=== PATIENT | female | born 1990 | race Caucasian/White ===

== ENCOUNTER → 2017-02-03 | Outpatient (CLI) | payer OTHER ==
[2017-02-03 14:47] LABS: URINE APPEARANCE CLEAR (CLEAR); URINE BILIRUBIN NEG (NEG); URINE COLOR YELLOW; URINE NITRITE NEG (NEG); URINE SPECIFIC GRAVITY 1.021 (1.000-1.030); UROBILINOGEN NEG (NEG)
[2017-02-03 15:11] LABS: MANUAL MICROSCOPIC REQUIRED? NO; REVIEW REQ? NO
== END | disposition home or self-care (01) ==
LOC: C.LABSPEC 13:47
PROVIDERS: ATTEND Obstetrics & Gynecology
DX: Z34.01 Encounter for supervision of normal first pregnancy, first trimester (principal)

== ENCOUNTER → 2017-02-10 | Outpatient (CLI) | payer OTHER ==
[2017-02-10 17:14] LABS: BASO % 0.3 %; BASO ABS # 0.03 K/uL (0-0.2); COMPLETE YES; EOS % 0.7 %; HEMATOCRIT 40.3 % (37-47); IG% 0.4 %; LYMPH % 18.4 %; LYMPH ABS # 2.06 K/uL (1.2-3.4); MEAN CELL VOLUME 91.8 fL (80-100); MEAN CORPUSCULAR HEMOGLOBIN 31.7 pg (25-34); MEAN CORPUSCULAR HGB CONC 34.5 g/dl (32-36); MEAN PLATELET VOLUME 9.9 fL (7.4-10.4); MONO % 6.2 %; PLATELET COUNT 252 K/uL (130-400); RED BLOOD COUNT 4.39 M/uL (4.2-5.4); WHITE BLOOD COUNT 11.19 K/uL (4.8-10.8)
[2017-02-14 07:35] LABS: CHLAMYDIA TRACH RNA*** NOT DETECTED (NOT DETECTED); GC (NEIS GONORRHOEAE)RNA** NOT DETECTED (NOT DETECTED)
== END | disposition home or self-care (01) ==
LOC: C.LAB1850 16:17
PROVIDERS: ATTEND Obstetrics & Gynecology
DX: Z34.01 Encounter for supervision of normal first pregnancy, first trimester (principal)

== ENCOUNTER → 2017-03-03 | Outpatient (CLI) | payer OTHER | END | disposition home or self-care (01) | LOC: C.LABSPEC 17:48 | PROVIDERS: ATTEND Obstetrics & Gynecology | DX: O23.40 Unspecified infection of urinary tract in pregnancy, unspecified trimester (principal); Z3A.00 Weeks of gestation of pregnancy not specified ==

== ENCOUNTER → 2017-03-31 | Outpatient (CLI) | payer OTHER ==
[2017-03-31 17:31] LABS: GTGD 50 Grams
== END | disposition home or self-care (01) ==
LOC: C.LAB1850 14:10
PROVIDERS: ATTEND Obstetrics & Gynecology
DX: Z34.01 Encounter for supervision of normal first pregnancy, first trimester (principal)

== ENCOUNTER → 2017-06-23 | Outpatient (CLI) | payer OTHER ==
[2017-06-23 11:34] LABS: GTGD 50 Grams
[2017-06-23 15:18] LABS: URINE APPEARANCE CLOUDY (CLEAR); URINE BILIRUBIN NEG (NEG); URINE COLOR YELLOW; URINE EPITHELIAL CELL AUTO >30 /lpf (0-5); URINE NITRITE NEG (NEG); URINE SPECIFIC GRAVITY 1.023 (1.000-1.030); UROBILINOGEN NEG (NEG)
[2017-06-23 15:19] LABS: MANUAL MICROSCOPIC REQUIRED? NO; REVIEW REQ? NO
== END | disposition home or self-care (01) ==
LOC: C.LAB1850 09:11
PROVIDERS: ATTEND Obstetrics & Gynecology
DX: Z34.03 Encounter for supervision of normal first pregnancy, third trimester (principal)

== ENCOUNTER 2017-08-04 01:53 | Observation (INO) | payer OTHER ==
[~2017-08-04] VITALS: Ht 157.5 cm; Wt 88.5 kg
[2017-08-04] MEDS ORDERED: SODIUM CHLORIDE 0.9% 1000ML 1,000 ML IV STA ×2 (02:13→03:27)
--- NOTE | 2017-08-04 02:20 | EMERGENCY ROOM VISIT NOTE ---
History Report prepared by Vicente: Norma Rodriguez Under the Supervision of: Dr. Bear Dominguez M.D. 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 She notes that she came home from work and was not feeling well. She notes that she was nauseous prior to going to bed and then woke up two hours later with increased nausea, increased heart rate, vomiting, shortness of breath, and mild low abdominal pain. She currently rates her pain a 4/10 in severity. The patient is 34 weeks . She notified her OB and was advised to come to the ED for evaluation. She states that the fetus is very active. She notes swelling in hands and feet that began three days ago. She denies any history of blood clots. She denies any family history of blood clots. The patient has a recent history of an upper respiratory infection. She is currently taking Amoxicillin for sinus infection. She denies any vaginal bleeding, vaginal discharge, urinary symptoms, chest pain , headache, or recent travels. 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 She notes increased heart rate. She denies any vaginal bleeding, vaginal discharge, or recent travels. Review of Systems See HPI for pertinent positives & negatives. A total of 10 systems reviewed and were otherwise negative. Past Medical & Surgical Medical Problems: (1) Hypothyroidism Family History FHx: cancer Social History Smoking Status: Never Smoker Smokeless Tobacco Use: No Alcohol Use: none Drug Use: none Marital Status: Housing Status: lives with significant other Occupation Status: employed Current/Historical Medications Scheduled Amoxicillin (Amoxil), 875 MG PO BID Ascorbic Acid (Ascorbic Acid), 250 MG PO DAILY Cholecalciferol (Vitamin D3), 2,000 UNITS PO DAILY Ferrous Sulfate (Iron), 325 MG PO DAILY Fluoxetine (Prozac), 10 MG PO DAILY Multivit/Min/Iron/Fol Ac/Pren ( Vitamin), 1 TAB PO DAILY Pantoprazole (Protonix), 40 MG PO DAILY Ranitidine (Zantac), 150 MG PO BID Allergies Coded Allergies: No Known Allergies (Unverified , 08/04/17) Physical Exam Vital Signs Date Time Temp Pulse Resp B/P (MAP) Pulse Ox O2 Delivery O2 Flow Rate FiO2 08/04/17 05:50 112 20 103/43 97 08/04/17 04:38 109 20 103/52 97 Room Air 08/04/17 03:01 111 20 100/53 97 Room Air 08/04/17 02:25 134 20 99/63 97 Room Air 08/04/17 02:00 97 Room Air 08/04/17 01:56 36.6 134 20 94/61 97 Room Air Physical Exam GENERAL: Patient is well appearing and in minimal acute distress. HEENT: No acute trauma, normocephalic atraumatic, mucous membranes moist, no nasal congestion, no scleral icterus. NECK: No stridor, no adenopathy, no meningismus, trachea is midline. LUNGS: No dyspnea. Clear to auscultation and equal bilaterally. No wheeze, no rhonchi. HEART: Tachycardic in the 100s. No murmurs, rubs, gallops appreciated. ABDOMEN: Soft, bowel sounds positive, large fundus consistent with dates appreciated, no peritonitis. Vague tenderness over suprapubic region. BACK: No midline tenderness, no CVA tenderness EXTREMITIES: Normal motion all extremities, no cyanosis, no edema. NEUROLOGIC: Alert and oriented, no acute motor or sensory deficits, no focal weakness, cranial nerves grossly intact. SKIN: No rash, no jaundice, no diaphoresis. Medical Decision & Procedures Laboratory Results 08/04/17 02:05 Red Blood Count 3.97, Mean Corpuscular Volume 96.7, Mean Corpuscular Hemoglobin 32.5, Mean Corpuscular Hemoglobin Concent 33.6, Mean Platelet Volume 10.5, Neutrophils (%) (Auto) 83.0, Lymphocytes (%) (Auto) 7.3, Monocytes (%) (Auto) 7.2, Eosinophils (%) (Auto) 0.1, Basophils (%) (Auto) 0.1, Neutrophils # (Auto) 11.70, Lymphocytes # (Auto) 1.03, Monocytes # (Auto) 1.02, Eosinophils # (Auto) 0.02, Basophils # (Auto) 0.02 08/04/17 02:05 Test 08/04/17 02:05 08/04/17 02:20 08/04/17 03:35 White Blood Count 14.11 K/uL (4.8-10.8) Red Blood Count 3.97 M/uL (4.2-5.4) Hemoglobin 12.9 g/dL (12.0-16.0) Hematocrit 38.4 % (37-47) Mean Corpuscular Volume 96.7 fL (80-100) Mean Corpuscular Hemoglobin 32.5 pg (25-34) Mean Corpuscular Hemoglobin Concent 33.6 g/dl (32-36) Platelet Count 183 K/uL (130-400) Mean Platelet Volume 10.5 fL (7.4-10.4) Neutrophils (%) (Auto) 83.0 % Lymphocytes (%) (Auto) 7.3 % Monocytes (%) (Auto) 7.2 % Eosinophils (%) (Auto) 0.1 % Basophils (%) (Auto) 0.1 % Neutrophils # (Auto) 11.70 K/uL (1.4-6.5) Lymphocytes # (Auto) 1.03 K/uL (1.2-3.4) Monocytes # (Auto) 1.02 K/uL (0.11-0.59) Eosinophils # (Auto) 0.02 K/uL (0-0.5) Basophils # (Auto) 0.02 K/uL (0-0.2) RDW Standard Deviation 52.4 fL (36.4-46.3) RDW Coefficient of Variation 14.9 % (11.5-14.5) Immature Granulocyte % (Auto) 2.3 % Immature Granulocyte # (Auto) 0.32 K/uL (0.00-0.02) Anion Gap 10.0 mmol/L (3-11) Est Creatinine Clear Calc Drug Dose 211.6 ml/min Estimated GFR () > 150.0 Estimated GFR (Non- 142.5 BUN/Creatinine Ratio 11.1 (10-20) Calcium Level 8.6 mg/dl (8.5-10.1) Total Bilirubin 0.8 mg/dl (0.2-1) Direct Bilirubin 0.2 mg/dl (0-0.2) Aspartate Amino Transf (AST/SGOT) 16 U/L (15-37) Alanine Aminotransferase (ALT/SGPT) 16 U/L (12-78) Alkaline Phosphatase 114 U/L (45-117) Total Protein 6.5 gm/dl (6.4-8.2) Albumin 2.9 gm/dl (3.4-5.0) Thyroid Stimulating Hormone (TSH) 1.180 uIu/ml (0.300-4.500) Urine Color ORANGE Urine Appearance CLOUDY (CLEAR) Urine pH 6.0 (4.5-7.5) Urine Specific [place] 1.026 (1.000-1.030) Urine Protein 1+ (NEG) Urine Glucose (UA) NEG (NEG) Urine Ketones 4+ (NEG) Urine Occult Blood NEG (NEG) Urine Nitrite NEG (NEG) Urine Bilirubin NEG (NEG) Urine Urobilinogen NEG (NEG) Urine Leukocyte Esterase SMALL (NEG) Urine WBC (Auto) 10-30 /hpf (0-5) Urine RBC (Auto) 0-4 /hpf (0-4) Urine Hyaline Casts (Auto) 0 /lpf (0-5) Urine Epithelial Cells (Auto) >30 /lpf (0-5) Urine Bacteria (Auto) NEG (NEG) Urine Crystals CALCIUM OXALATE (NONE Urine Pathogenic Casts /lpf (0) Troponin I 0.039 ng/ml (0-0.045) Laboratory results as reviewed by me. Medications Administered Medications (Trade) Dose Ordered Sig/Rakel Route Start Time Stop Time Status Last Admin Dose Admin Sodium Chloride 1,000 ml @ 999 mls/hr Q1H1M STAT IV 08/04/17 02:13 08/04/17 03:13 DC 08/04/17 02:13 999 MLS/HR Ondansetron HCl (Zofran Inj) 4 mg NOW STAT IV 08/04/17 02:21 08/04/17 02:22 DC 08/04/17 02:34 4 MG Sodium Chloride 1,000 ml @ 999 mls/hr Q1H1M STAT IV 08/04/17 03:27 08/04/17 04:27 DC 08/04/17 03:27 999 MLS/HR Potassium Chloride (Klor-Con M10) 40 meq STK-MED ONCE .ROUTE 08/04/17 05:47 08/04/17 05:48 DC 08/04/17 05:49 40 MEQ ECG Indication: SOB/dyspnea Rate (beats per minute): 119 Rhythm: sinus tachycardia Findings: no acute ischemic change, no ectopy Change: Repeat ECG: Sinus Tachycardia 105 Findings: No acute ischemic changes. No ectopy. Similar to previous. ED Course 0206: The patient was evaluated in room A11B. A complete history and physical exam was performed. 0255: I reassessed the patient at this time. Her heart rate is down to 100. She no longer has abdominal pain or shortness of breath. She is resting comfortably. 0325: I reassessed the patient at this time. Her heart rate is in the 90s. She notes feeling much better. She is agreeable to repeat laboratory check. She and her are comfortable with treatment plan. 0329: I spoke with KELSI Villagomez. We discussed the patients case. She agrees with repeating the troponin. She advises to send to L&D if non- significant. 0405: I reassessed the patient at this time. I performed a US with findings: Positive IUP. Positive heart tones. Positive movement. 0425: I spoke with KELSI Villagomez. We discussed the patients case. She recommends consulting with the hospitalist. 0435: I reassessed the patient at this time. I discussed the results and treatment plan with the patient. I answered all pertaining questions that she had. She expressed understanding and verbalized agreement. The patient will be further evaluated. 0442: I spoke with Dr. Guzman, hospitalist. We discussed the patients case. The patient will be evaluated by the [facility] for further management. 0452: I spoke with Dr. Verduzco, field services manager. We discussed the patients case. He is aware of patient and agrees with plan for echocardiogram. 0500: I reassessed the patient at this time. I updated the patient. Medical Decision 26 yr old 34wk female arrives with tachycardia and lightheaded with episodes of shortness of breath and abdominal cramping. Exam with labile HR from 120s-140s, OK BP and normal O2 sats. She is not shob on arrival nor at any time during stay. With tachy and reported shob/cp/hand swelling in setting of recent URI concern possible myocarditis/pericarditis thus went ahead with EKG and trop. Trop wnl but not negative which is a bit unusual for healthy 26 yr old, but given dehydration felt repeat reasonable. At just 90 min trop has essentially doubled, but again still wnl. At this point she is now feeling completely well without complaints. HR is still a bit tachy in 110s at times but with this is nor unusual. WBC 14 could be URI plus dehydration, and she certainly does not appear septic at this time. I feel that Trop is likely incidental findings, but I can not reasonable state this and given her need for monitoring I did not feel that further waiting in ED pending more testing reasonable without getting more services involved. After multiple discusses plan will be admit to medicine, consult with OB (already at bedside), as well as consult with Cardiology (Dr Verduzco aware by me). Patient aware of plan and approach. She is also aware the fact PE could theoretically case similar symptoms, however in setting of no SOB, no Hypoxia, and symptoms resolved with fluids with clear evidence of dehydration (Ketones 4+), I feel doing CT PE not indicated at this time, nor do benefits outweigh risks. Medication Reconcilliation Current Medication List: was personally reviewed by me Blood Pressure Screening Patient's blood pressure: Normal blood pressure Consults Time Called: [phone] Consulting Physician: KELSI Villagomez Returned Call: [phone] I spoke with KELSI Villagomez. We discussed the patients case. She agrees with repeating the troponin. She advises to send to L&D if non-significant. 0425: I spoke with KELSI Villagomez. We discussed the patients case. She recommends consulting with the hospitalist. Additional Consults: Time Called: [phone] Consulted Physician: Dr. Guzman, hospitalist Returned Call: [phone] Additional Comments: I spoke with Dr. Guzman hospitalist. We discussed the patients case. The patient will be evaluated by the [facility] for further management. Time Called: [phone] Consulted Physician: Dr. Verduzco, field services manager Returned Call: [phone] Additional Comments: I spoke with Dr. Verduzco, field services manager. We discussed the patients case. The patient will be further evaluated. Impression Primary Impression: Tachycardia Additional Impressions: Dehydration Scribe Attestation The scribe's documentation has been prepared under my direction and personally reviewed by me in its entirety. I confirm that the note above accurately reflects all work, treatment, procedures, and medical decision making performed by me. Departure Information Dispostion Being Evaluated By Hospitalist Referrals Tesha Santiago PA-C (PCP) Patient Instructions My [facility] Problem Qualifiers
[2017-08-04] MEDS ORDERED: ONDANSETRON INJ 2 MG/ML 2 ML VIAL IV STA (02:21)
[2017-08-04 02:31] LABS: BASO % 0.1 %; BASO ABS # 0.02 K/uL (0-0.2); EOS % 0.1 %; EOS ABS # 0.02 K/uL (0-0.5); HEMATOCRIT 38.4 % (37-47); HEMOGLOBIN 12.9 g/dL (12.0-16.0); IG# 0.32 K/uL (0.00-0.02); LYMPH % 7.3 %; LYMPH ABS # 1.03 K/uL (1.2-3.4); MEAN CELL VOLUME 96.7 fL (80-100); MEAN CORPUSCULAR HEMOGLOBIN 32.5 pg (25-34); MEAN CORPUSCULAR HGB CONC 33.6 g/dl (32-36); MEAN PLATELET VOLUME 10.5 fL (7.4-10.4); MONO % 7.2 %; MONO ABS # 1.02 K/uL (0.11-0.59); PLATELET COUNT 183 K/uL (130-400); RED CELL DISTRIBUTION WIDTH CV 14.9 % (11.5-14.5); RED CELL DISTRIBUTION WIDTH SD 52.4 fL (36.4-46.3); WHITE BLOOD COUNT 14.11 K/uL (4.8-10.8)
[2017-08-04 02:38] LABS: ALBUMIN 2.9 gm/dl (3.4-5.0); ALT/SGPT 16 U/L (12-78); AST/SGOT 16 U/L (15-37); BLOOD UREA NITROGEN 5 mg/dl (7-18); CALCIUM 8.6 mg/dl (8.5-10.1); CARBON DIOXIDE 20 mmol/L (21-32); CREATININE 0.42 mg/dl (0.60-1.20); GLUCOSE 100 mg/dl (70-99); POTASSIUM 3.6 mmol/L (3.5-5.1); SODIUM 138 mmol/L (136-145)
[2017-08-04 02:43] LABS: ALKALINE PHOSPHATASE 114 U/L (45-117); TOTAL PROTEIN 6.5 gm/dl (6.4-8.2)
[2017-08-04] MEDS ORDERED: CHOL2000 PO (02:47)
[2017-08-04] MEDS ORDERED: ASCO250T5 PO (02:49)
[2017-08-04] MEDS ORDERED: FERR1TAB23 PO (02:49)
[2017-08-04] MEDS ORDERED: PRENTAB26 PO (02:50)
[2017-08-04] MEDS ORDERED: FLUO10CA48 PO (02:51)
[2017-08-04] MEDS ORDERED: PANT40TA PO (02:52)
[2017-08-04] MEDS ORDERED: ZNTT/150 PO (02:53)
[2017-08-04] MEDS ORDERED: AMOX875T3 PO (02:54)
[2017-08-04] MEDS ORDERED: POTASSIUM CHLORIDE 20 MEQ TABCR PO STA (05:39)
[2017-08-04] MEDS ORDERED: POTASSIUM CHLORIDE 10 MEQ TABCR ONE (05:47)
[2017-08-04] MEDS ORDERED: IV FLUIDS COMPLETED PRN (06:00)
--- NOTE | 2017-08-04 06:02 | HISTORY & PHYSICAL EXAMINATION ---
DATE OF ADMISSION: 08/04/2017 REASON FOR CONSULT: at 34 weeks with elevated troponin. 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 I recommended that she be evaluated in the Emergency Department. She noted that the baby was extremely active and that she had some lower abdominal cramping, but no bleeding or leaking fluid. The patient presented to the Emergency Department and was fully evaluated by the ED physician. Her pulse on admission was in the 140s. Her blood pressure on admission was 94/61. She had laboratory work done which showed a white blood cell count of 14.11, hematocrit of 38.4, hemoglobin of 12.9, platelet count of 183. Chemistry within normal limits. BUN 5, creatinine 0.42. AST and ALT were normal. She had a troponin drawn which was 0.023 and this was repeated about an hour and a half later and had essentially doubled. Her TSH was 1.18. During the course of evaluation in the Emergency Department, she was aggressively hydrated as her urine showed +4 ketones. With hydration, the patient felt significantly better. Her tachycardia did improve; however, she does remain slightly tachycardic with a pulse of 109, blood pressure 103/52. She notes her abdominal cramping has completely resolved. She notes no vaginal bleeding or discharge, continues to note good movement. The Emergency Department physician was concerned about the bumped troponin, even though within normal limits and would like further troponins done and a consult by cardiology. Our hospitalist friends have finally agreed to admit her onto to a telemetry bed where she will be followed. The patient is overall healthy. 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 She denies history of abnormal Pap smears or sexually transmitted illnesses. thus far has been uncomplicated. She has hypothyroidism which has been followed throughout the and she has anxiety for which she is on fluoxetine. MEDICATIONS: Cetirizine, Levoxyl, levothyroxine, vitamins, iron, fluoxetine, vitamin D, vitamin C, pantoprazole and Zantac. PAST MEDICAL HISTORY: The patient has a history of depression and anxiety for which she takes fluoxetine. She has a history of hypothyroidism, history of a breast lump which was revealed to be benign cyst and history of chickenpox. PAST SURGICAL HISTORY: Includes only wisdom teeth removal. SOCIAL HISTORY: The patient denies tobacco, alcohol or drug use. PHYSICAL EXAMINATION: GENERAL: This is a well-developed, well-nourished white female lying comfortably in the bed. VITAL SIGNS: Pulse 109, respiration is 20. She is satting 97% on room air, blood pressure 103/52. NECK: Supple without thyromegaly or lymphadenopathy. ABDOMEN: Gravid, soft, nontender, nondistended. EXTREMITIES: Show some trace edema but are otherwise benign. TOCO--no contractions EFM--reactive nst with category one tracing. ASSESSMENT: Esther is a 1, para 0 at approximately 34 weeks who presented to the Emergency Department with tachycardia, shortness of breath, nausea and dizziness. Although the ED doctor suspects that this is probably a viral illness, because of her persistent tachycardia and the elevated troponins, she will admitted by medicine service for observation. Dr. Verduzco has been contacted for evaluation of her heart and she will likely undergo an echocardiogram later in the day today, which I fully support. From a standpoint, I do not believe that she is in labor. The cramping that she had was likely secondary to dehydration and has resolved with aggressive fluid hydration. We can continue that fluid hydration if she has difficulty taking po. She can have a regular OB diet per primary service. We will do a nonstress test on the patient every shift. We will continue to follow with you, but please call us if the patient starts to note bleeding, leaking of fluid, contractions or decreased movement. We appreciate the other consultants on this case. From an ob standpoint, she can be discharged when deemed appropriate by the primary service and cardiology. TO
[2017-08-04 06:30] VITALS: BP 105/58; PULSE 114; TEMP 36.5; O2SAT 98; Ht 157.5 cm; Wt 88.5 kg
[2017-08-04] MEDS ORDERED: SODIUM CHLORIDE 0.9% 1000ML 1,000 ML IV SCH (07:00)
--- NOTE | 2017-08-04 07:05 | DIAGNOSTIC IMAGING REPORT ---
BILATERAL LOWER EXTREMITY VENOUS DOPPLER HISTORY: Bilateral leg swelling. COMPARISON STUDY: None. FINDINGS: There is normal compressibility, flow, and augmentation within the bilateral lower extremity deep venous systems. IMPRESSION: No DVT within the right or left lower extremity. Electronically signed by: Cristian Plummer M.D. 08/04/2017 7:04 AM Dictated Date/Time: 08/04/2017 7:04 AM
--- NOTE | 2017-08-04 07:53 | History and Physical ---
History & Physical Date & Time of Service: Aug 04, 2017 at 07:05 Chief Complaint: , Tachycardia Primary Care Physician: Tesha Santiago PA-C History of Present Illness Source: patient This is 26 year old F who is 34 weeks who has been having nausea and awoke from her sleep feeling sensations of her heart pounding. Patient presented to the emergency department and found to be tachycardic. Tachycardia persisted despite receiving IV fluids. In the ED, patient had 2 negative troponins however the troponins increased from 0.023 to 0.039. Patient was also evaluated by OBGYN in the ED for heart monitoring. ED physician also called Cardiology for further evaluation of tachycardia. Patient also reported increased lower extremity swelling. Ultrasound of lower extremities did not show evidence of DVT. Past Medical/Surgical History Medical Problems: (1) Hypothyroidism Status: Chronic Family History FHx: cancer Social History Smoking Status: Never Smoker Smokeless Tobacco Use: No Drug Use: none Marital Status: Occupational Status: employed Allergies Coded Allergies: No Known Allergies (Unverified , 08/04/17) Home Medications Scheduled Amoxicillin (Amoxil), 875 MG PO BID Ascorbic Acid (Ascorbic Acid), 250 MG PO DAILY Cholecalciferol (Vitamin D3), 2,000 UNITS PO DAILY Ferrous Sulfate (Iron), 325 MG PO DAILY Fluoxetine (Prozac), 10 MG PO DAILY Multivit/Min/Iron/Fol Ac/Pren ( Vitamin), 1 TAB PO DAILY Pantoprazole (Protonix), 40 MG PO DAILY Ranitidine (Zantac), 150 MG PO BID Review of Systems Constitutional: No fever Eyes: No worsening of vision ENT: No sore throat Respiratory: No cough, No sputum, No wheezing, No shortness of breath Cardiovascular: + chest pain, + edema, + palpitations Abdomen: No pain, No nausea, No vomiting Musculoskeletal: + swelling, No calf pain Genitourinary - Female: No dysuria Neurologic: No numbness/tingling Psychiatric: No substance abuse Endocrine: No fatigue Hematologic / Lymphatic: No abnormal bleeding/bruising Integumentary: No rash Physical Exam Vital Signs Date Time Temp Pulse Resp B/P (MAP) Pulse Ox O2 Delivery O2 Flow Rate FiO2 08/04/17 06:30 36.5 114 20 105/58 98 Room Air 08/04/17 05:50 112 20 103/43 97 08/04/17 04:38 109 20 103/52 97 Room Air 08/04/17 03:01 111 20 100/53 97 Room Air 08/04/17 02:25 134 20 99/63 97 Room Air 08/04/17 02:00 97 Room Air 08/04/17 01:56 36.6 134 20 94/61 97 Room Air General Appearance: no apparent distress Head: normocephalic, atraumatic Eyes: normal inspection, EOMI, sclerae normal ENT: normal ENT inspection, hearing grossly normal, pharynx normal Neck: supple, no adenopathy, no JVD, trachea midline Respiratory/Chest: chest non-tender, lungs clear, normal breath sounds, no respiratory distress, no accessory muscle use Cardiovascular: no JVD, normal peripheral pulses, + tachycardia Abdomen/GI: normal bowel sounds, non tender, soft, no organomegaly, no pulsatile mass Back: normal inspection, no muscle spasm, normal range of motion Extremities/Musculoskelatal: normal inspection, no calf tenderness, normal range of motion, non-tender, + pertinent finding (biltaeral lower extremity edema) Neurologic/Psych: no motor/sensory deficits, alert, normal mood/affect, oriented x 3 Skin: normal color, warm/dry, no rash Diagnostics Laboratory Results Results Past 24 Hours Test 08/04/17 02:05 08/04/17 02:20 08/04/17 03:35 Range/Units White Blood Count 14.11 4.8-10.8 K/uL Red Blood Count 3.97 4.2-5.4 M/uL Hemoglobin 12.9 12.0-16.0 g/dL Hematocrit 38.4 37-47 % Mean Corpuscular Volume 96.7 80-100 fL Mean Corpuscular Hemoglobin 32.5 25-34 pg Mean Corpuscular Hemoglobin Concent 33.6 32-36 g/dl Platelet Count 183 130-400 K/uL Mean Platelet Volume 10.5 7.4-10.4 fL Neutrophils (%) (Auto) 83.0 % Lymphocytes (%) (Auto) 7.3 % Monocytes (%) (Auto) 7.2 % Eosinophils (%) (Auto) 0.1 % Basophils (%) (Auto) 0.1 % Neutrophils # (Auto) 11.70 1.4-6.5 K/uL Lymphocytes # (Auto) 1.03 1.2-3.4 K/uL Monocytes # (Auto) 1.02 0.11-0.59 K/uL Eosinophils # (Auto) 0.02 0-0.5 K/uL Basophils # (Auto) 0.02 0-0.2 K/uL RDW Standard Deviation 52.4 36.4-46.3 fL RDW Coefficient of Variation 14.9 11.5-14.5 % Immature Granulocyte % (Auto) 2.3 % Immature Granulocyte # (Auto) 0.32 0.00-0.02 K/uL Sodium Level 138 136-145 mmol/L Potassium Level 3.6 3.5-5.1 mmol/L Chloride Level 108 98-107 mmol/L Carbon Dioxide Level 20 21-32 mmol/L Anion Gap 10.0 3-11 mmol/L Blood Urea Nitrogen 5 7-18 mg/dl Creatinine 0.42 0.60-1.20 mg/dl Est Creatinine Clear Calc Drug Dose 211.6 ml/min Estimated GFR () > 150.0 Estimated GFR (Non- 142.5 BUN/Creatinine Ratio 11.1 10-20 Random Glucose 100 70-99 mg/dl Calcium Level 8.6 8.5-10.1 mg/dl Total Bilirubin 0.8 0.2-1 mg/dl Direct Bilirubin 0.2 0-0.2 mg/dl Aspartate Amino Transf (AST/SGOT) 16 15-37 U/L Alanine Aminotransferase (ALT/SGPT) 16 12-78 U/L Alkaline Phosphatase 114 45-117 U/L Troponin I 0.023 0.039 0-0.045 ng/ml Total Protein 6.5 6.4-8.2 gm/dl Albumin 2.9 3.4-5.0 gm/dl Thyroid Stimulating Hormone (TSH) 1.180 0.300-4.500 uIu/ml Urine Color ORANGE Urine Appearance CLOUDY CLEAR Urine pH 6.0 4.5-7.5 Urine Specific [place] 1.026 1.000-1.030 Urine Protein 1+ NEG Urine Glucose (UA) NEG NEG Urine Ketones 4+ NEG Urine Occult Blood NEG NEG Urine Nitrite NEG NEG Urine Bilirubin NEG NEG Urine Urobilinogen NEG NEG Urine Leukocyte Esterase SMALL NEG Urine WBC (Auto) 10-30 0-5 /hpf Urine RBC (Auto) 0-4 0-4 /hpf Urine Hyaline Casts (Auto) 0 0-5 /lpf Urine Epithelial Cells (Auto) >30 0-5 /lpf Urine Bacteria (Auto) NEG NEG Urine Crystals CALCIUM OXALATE NONE PRSENT Urine Pathogenic Casts 0 /lpf Microbiology Results 08/04/17 Urine Culture, Received Pending Impression Assessment and Plan This is 26 year old F who is 34 weeks who has been having nausea and awoke from her sleep feeling sensations of her heart pounding. Patient presented to the emergency department and found to be tachycardic. Tachycardia persisted despite receiving IV fluids. In the ED, patient had 2 negative troponins however the troponins increased from 0.023 to 0.039. Patient was also evaluated by OBGYN in the ED for heart monitoring. ED physician also called Cardiology for further evaluation of tachycardia. Patient also reported increased lower extremity swelling. Ultrasound of lower extremities did not show evidence of DVT. persistent tachycardia -continue IV fluids -obtain echocardiogram -cardiology consult requested -hold home dose Levothyroxine today, check TFTs -no DVT of lower extremity -no reported fevers, no clinical signs of infection -no gross electrolyte deficiencies, serum potassium was mild low 3.6 and 40 meq PO potassium ordered -continue home dose sertraline -DVT ppx with SCDs Level of Care Telemetry Advanced Directives Existing Living Will: Yes Existing Power of Glue Specialty Supervisor: No VTE Prophylaxis VTE Risk Assessment Done? Y/N: Yes Risk Level: Moderate
[2017-08-04 08:40] VITALS: BP 134/69; PULSE 76; TEMP 36.9; O2SAT 95
[2017-08-04] MEDS ORDERED: FLUOXETINE HCL 10 MG CAP PO SCH (09:00)
[2017-08-04] MEDS ORDERED: ONDANSETRON INJ 2 MG/ML 2 ML VIAL IV ONE (09:45)
[2017-08-04 11:27] LABS: ALBUMIN 2.3 gm/dl (3.4-5.0); ALT/SGPT 13 U/L (12-78); BLOOD UREA NITROGEN 4 mg/dl (7-18); CALCIUM 8.3 mg/dl (8.5-10.1); CARBON DIOXIDE 18 mmol/L (21-32); CREATININE 0.27 mg/dl (0.60-1.20); GLUCOSE 90 mg/dl (70-99); POTASSIUM 3.6 mmol/L (3.5-5.1); SODIUM 139 mmol/L (136-145)
[2017-08-04 11:33] LABS: ALKALINE PHOSPHATASE 89 U/L (45-117); AST/SGOT 16 U/L (15-37); TOTAL PROTEIN 5.3 gm/dl (6.4-8.2)
[2017-08-04 12:08] VITALS: BP 129/60; PULSE 89; TEMP 36.8; O2SAT 99
--- NOTE | 2017-08-04 12:16 | CARDIOLOGY CONSULTATION ---
DATE OF CONSULTATION: 08/04/2017 DATE OF CONSULTATION: 08/04/2017 REFERRING PHYSICIAN: Dr. Guzman. INDICATIONS: Sinus tachycardia. HISTORY OF PRESENT ILLNESS: The patient is a 26-year-old female at 34 weeks gestation, whose past medical history is notable for hypothyroidism, induced gastroesophageal reflux, recent upper respiratory infection who presented to the Emergency Room last night noting having been treated for sinusitis approximately 2 days prior. Last evening she was awakened from sleep with a sense of nausea and heart pounding. She notes not having felt well after returning home from work earlier that day with poor p.o. intake, noted no chest pains. Noted no worsening shortness of breath. Notes no fevers, chills, though had had fevers earlier in the past week. Has had some mild increase in lower extremity edema. Denies syncope or near syncope. Notes no prior history of cardiac disease, rheumatic fever, scarlet fever, renal or hepatic disease. has been generally well tolerated. She notes no history of hypertension or change in blood pressures other than slight improvement from baseline low blood pressures usual. She notes no acute medication changes other than the initiation of antibiotic therapies. Sinusitis appears still present. Notes no dysuria or hematuria. Notes no bleeding difficulties. Notes no melena, hematochezia. 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 Laboratory studies in the Emergency Room demonstrated 2 negative troponins, though there remained concern regarding slight fluctuation and change in overall value. She has been admitted for further observation. Heart rates did improve with IV hydration. The patient is feeling improved this morning. ALLERGIES: None. MEDICATIONS PRIOR TO HOSPITALIZATION: Amoxicillin 875 b.i.d., vitamin C, vitamin D, ranitidine 150 mg b.i.d., Protonix 40 mg p.o. every day, multivitamin per day, Prozac 10 mg daily, iron sulfate 325 mg p.o. daily. PAST SURGICAL HISTORY: None. FAMILY HISTORY: Not notable for heart disease per patient. SOCIAL HISTORY: The patient resides in [place]. 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 She is a nonsmoker, nondrinker. She is generally active, worked day of admission. PHYSICAL EXAMINATION: VITAL SIGNS: Heart rate is 100, blood pressure is 134/69. HEAD, EYES, EARS, NOSE, AND THROAT: Normocephalic, atraumatic. Nares without discharge. Throat was clear. NECK: Supple without thyromegaly or lymphadenopathy. There are no carotid bruits. LUNGS: Clear to auscultation. CARDIOVASCULAR: Regular with normal S1, S2. There is no murmur, gallop or rub. PMI is nondisplaced. ABDOMEN: Soft, stayed consistent with . There is no rebound or guarding. EXTREMITIES: Without cyanosis or clubbing. There is trace lower extremity edema. LABORATORY DATA: EKGs on initial presentation revealed sinus tachycardia. Serial EKGs since demonstrated sinus tachycardia without ST segment changes. Troponins as noted in the ER demonstrated a troponin of 0.23, 0.39 and this morning was less than 0.015. TSH was 1.18. Electrolytes this morning, sodium is 139, potassium is 3.6, chloride is 110, bicarbonate is 18, BUN is 4, creatinine is 0.27. Urinalysis was notable for 1+ protein. Echocardiogram preliminary reviewed today demonstrates normal left ventricular size and function. There were no wall motion abnormalities. There is no valvular structures. There is no pericardial effusion. IMPRESSION: A 26-year-old female with symptoms of recent sinusitis, presented to the ER with heart pounding, sinus tachycardia, likely reactive to multiple underlying effectors including a recent infection and dehydration. She has responded to IV fluids. Troponins are negative. EKGs reflect only sinus tachycardia, no acute changes. Echocardiogram demonstrates no wall motion abnormalities or valvular issues. Findings reflect secondary sinus tachycardia without underlying cardiac issue.
--- NOTE | 2017-08-04 13:20 | ECHOCARDIOGRAM REPORT ---
*NOTICE TO RECEIVING REPUBLICAN AGENCY This information is strictly Confidential and protected under [place] law. [place] law prohibits you from making any further disclosure of this information unless further disclosure is expressly permitted by the written consent of the person to whom it pertains or is authorized by law. A general authorization for the release of medical or other information is not sufficient for this purpose. Hospital accepts no responsibility if the information is made available to any other person, INCLUDING THE PATIENT. Interpretation Summary * Name: ISIDORO HIRSCH Study Date: 08/04/2017 08:47 AM BP: 103/43 mmHg * Patient Location: .2T\S\E222\S\1 HR: 95 * : 1990 (M/d/yyyy) Gender: Female Height: 62 in * Age: 26 yrs Ethnicity: CA Weight: 195 lb * Ordering Physician: Max Guzman * Referring Physician: Self, Referred * Performed By: Kelsi Shafer RCS * * Reason For Study: TACHYCARDIA * BSA: 1.9 m2 * Normal transthoracic echocardiogram. * -- Conclusions -- * There is normal left ventricular wall thickness. * Left ventricular systolic function is normal. * The left ventricular wall motion is normal. * Ejection Fraction = 60-65%. * There is no significant valvular disease * The right ventricle is normal in size and function. * There is no pericardial effusion. * Doppler findings do not suggest pulmonary hypertension. Procedure Details * A complete two-dimensional transthoracic echocardiogram was performed (2D, M-mode, Doppler and color flow Doppler). Left Ventricle * The left ventricle is normal in size. * There is normal left ventricular wall thickness. * Left ventricular systolic function is normal. * Ejection Fraction = 60-65%. * The left ventricular wall motion is normal. Right Ventricle * The right ventricle is normal in size and function. Atria * The left atrial size is normal. * Right atrial size is normal. * There is no evidence of atrial septal defect, but resolution does not allow assessment for a patent foramen ovale. Mitral Valve * The mitral valve anatomy is normal. * There is no mitral valve stenosis. * Significant mitral regurgitation is absent. Tricuspid Valve * The tricuspid valve anatomy is normal. * There is no tricuspid stenosis. * Significant tricuspid regurgitation is absent. * Doppler findings do not suggest pulmonary hypertension. Aortic Valve * The aortic valve is trileaflet. * Aortic stenosis is absent. * There is no significant aortic regurgitation. Pulmonic Valve * The pulmonary valve is not well seen, but the Doppler examination is normal without significant regurgitation or stenosis. Great Vessels * The aortic root and proximal ascending aorta are normal sized. Pericardium/Pleural * There is no pericardial effusion. Great Vessels * Normal inferior vena cava diameter and respiratory variation suggests normal central venous pressure. MMode 2D Measurements and Calculations IVSd 1.1 cm IVSs 1.5 cm LVIDd 4.6 cm LVIDs 3.3 cm LVPWd 1.1 cm LVPWs 1.3 cm IVS/LVPW 10 FS 27.0 % EDV(Teich) 96.1 ml ESV(Teich) 45.4 ml EF(Teich) 52.7 % EDV(cubed) 95.7 ml ESV(cubed) 37.2 ml EF(cubed) 61.1 % % IVS thick 30.2 % % LVPW thick 17.5 % LV mass(C)d 189.3 grams LV mass(C)dI 100.1 grams/m\S\2 LV mass(C)s 164.9 grams LV mass(C)sI 87.2 grams/m\S\2 SV(Teich) 50.7 ml SI(Teich) 26.8 ml/m\S\2 SV(cubed) 58.5 ml SI(cubed) 30.9 ml/m\S\2 Ao root diam 3.1 cm Ao root area 7.6 cm\S\2 LA dimension 3.6 cm LA/Ao 1.2 LVOT diam 2.0 cm LVOT area 3.1 cm\S\2 LVAd ap4 32.2 cm\S\2 LVLd ap4 8.2 cm EDV(MOD-sp4) 102.8 ml EDV(sp4-el) 107.9 ml LVAs ap4 20.7 cm\S\2 LVLs ap4 6.5 cm ESV(MOD-sp4) 51.8 ml ESV(sp4-el) 56.0 ml EF(MOD-sp4) 49.6 % EF(sp4-el) 48.1 % LVAd ap2 32.1 cm\S\2 LVLd ap2 7.8 cm EDV(MOD-sp2) 106.3 ml EDV(sp2-el) 111.9 ml LVAs ap2 18.3 cm\S\2 LVLs ap2 6.4 cm ESV(MOD-sp2) 43.0 ml ESV(sp2-el) 44.8 ml EF(MOD-sp2) 59.6 % EF(sp2-el) 60.0 % LVLd %diff -4.85 % EDV(MOD-bp) 107.4 ml LVLs %diff -2.55 % ESV(MOD-bp) 48.6 ml EF(MOD-bp) 54.8 % SV(MOD-sp4) 51.0 ml SI(MOD-sp4) 27.0 ml/m\S\2 SV(MOD-sp2) 63.3 ml SI(MOD-sp2) 33.5 ml/m\S\2 SV(MOD-bp) 58.9 ml SI(MOD-bp) 31.1 ml/m\S\2 SV(sp4-el) 51.9 ml SI(sp4-el) 27.4 ml/m\S\2 SV(sp2-el) 67.2 ml SI(sp2-el) 35.5 ml/m\S\2 Doppler Measurements and Calculations Ao V2 max 181.2 cm/sec Ao max PG 13.1 mmHg Ao max PG (full) 8.8 mmHg TAMMY(V,A) 1.8 cm\S\2 TAMMY(V,D) 1.8 cm\S\2 LV V1 max PG 4.3 mmHg LV V1 max 104.1 cm/sec PA V2 max 99.2 cm/sec PA max PG 3.9 mmHg
--- NOTE | 2017-08-04 15:12 | Progress Note ---
Medicine Progress Note Date & Time of Visit: Aug 04, 2017 at 15:12 . Subjective Experiencing intermittent nausea, relieved by ondansetron. No emesis. Known to have GERD from . No fever. No chest pain, cough, SOB. . Objective Last 8 Hrs Date Time Temp Pulse Resp B/P (MAP) Pulse Ox O2 Delivery O2 Flow Rate FiO2 08/04/17 12:08 36.8 89 18 129/60 (83) 99 08/04/17 12:00 Room Air 08/04/17 08:40 36.9 76 18 134/69 (90) 95 08/04/17 08:00 Room Air Physical Exam: General- no distress Lungs- clear Cardiovascular- RRR, rate in 90's, I/ sys murmur at base; no JVD; no pretibial edema Abdomen- + BS, soft, nontender, gravid uterus Extremities- no cyanosis, no calf tenderness Neuro- alert Skin- warm & dry . Laboratory Results: Last 24 Hours Test 08/04/17 02:05 08/04/17 02:20 08/04/17 03:35 08/04/17 10:50 White Blood Count 14.11 K/uL Red Blood Count 3.97 M/uL Hemoglobin 12.9 g/dL Hematocrit 38.4 % Mean Corpuscular Volume 96.7 fL Mean Corpuscular Hemoglobin 32.5 pg Mean Corpuscular Hemoglobin Concent 33.6 g/dl Platelet Count 183 K/uL Mean Platelet Volume 10.5 fL Neutrophils (%) (Auto) 83.0 % Lymphocytes (%) (Auto) 7.3 % Monocytes (%) (Auto) 7.2 % Eosinophils (%) (Auto) 0.1 % Basophils (%) (Auto) 0.1 % Neutrophils # (Auto) 11.70 K/uL Lymphocytes # (Auto) 1.03 K/uL Monocytes # (Auto) 1.02 K/uL Eosinophils # (Auto) 0.02 K/uL Basophils # (Auto) 0.02 K/uL RDW Standard Deviation 52.4 fL RDW Coefficient of Variation 14.9 % Immature Granulocyte % (Auto) 2.3 % Immature Granulocyte # (Auto) 0.32 K/uL Sodium Level 138 mmol/L 139 mmol/L Potassium Level 3.6 mmol/L 3.6 mmol/L Chloride Level 108 mmol/L 110 mmol/L Carbon Dioxide Level 20 mmol/L 18 mmol/L Anion Gap 10.0 mmol/L 11.0 mmol/L Blood Urea Nitrogen 5 mg/dl 4 mg/dl Creatinine 0.42 mg/dl 0.27 mg/dl Est Creatinine Clear Calc Drug Dose 211.6 ml/min 329.2 ml/min Estimated GFR () > 150.0 > 150.0 Estimated GFR (Non- 142.5 > 150.0 BUN/Creatinine Ratio 11.1 13.9 Random Glucose 100 mg/dl 90 mg/dl Calcium Level 8.6 mg/dl 8.3 mg/dl Total Bilirubin 0.8 mg/dl 0.7 mg/dl Direct Bilirubin 0.2 mg/dl Aspartate Amino Transf (AST/SGOT) 16 U/L 16 U/L Alanine Aminotransferase (ALT/SGPT) 16 U/L 13 U/L Alkaline Phosphatase 114 U/L 89 U/L Troponin I 0.023 ng/ml 0.039 ng/ml < 0.015 ng/ml Total Protein 6.5 gm/dl 5.3 gm/dl Albumin 2.9 gm/dl 2.3 gm/dl Thyroid Stimulating Hormone (TSH) 1.180 uIu/ml Urine Color ORANGE Urine Appearance CLOUDY Urine pH 6.0 Urine Specific [place] 1.026 Urine Protein 1+ Urine Glucose (UA) NEG Urine Ketones 4+ Urine Occult Blood NEG Urine Nitrite NEG Urine Bilirubin NEG Urine Urobilinogen NEG Urine Leukocyte Esterase SMALL Urine WBC (Auto) 10-30 /hpf Urine RBC (Auto) 0-4 /hpf Urine Hyaline Casts (Auto) 0 /lpf Urine Epithelial Cells (Auto) >30 /lpf Urine Bacteria (Auto) NEG Urine Crystals CALCIUM OXALATE Urine Pathogenic Casts /lpf Globulin 3.0 gm/dl Albumin/Globulin Ratio 0.8 Date/Time Source Procedure Growth Status 08/04/17 02:20 Urine , Random Urine Culture Pending Received Assessment & Plan TACHYCARDIA Presented to ED with sinus tachycardia. Serum troponin normal. Afebrile. Echo- normal. Low suspicion for pulmonary embolism. Venous duplex lower extremities negative. UA showed 4+ ketones, small amount leukocyte esterase, 10-30 WBC's, no bacteria , many epithelial cells. No fever or urinary symptoms. Tachycardia improved with IV fluids. Suspect that tachycardia secondary to volume depletion due to GI symptoms. NAUSEA / GERD Known GERD secondary to . Continue ranitidine and PPI. Ondansetron ODT PRN. 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 IUP OB consulted and followed during hospital stay. monitoring unremarkable. VTE PROPHYLAXIS SCD's. DISPOSITION Discharged to home. Primary Care follow-up with Tesha Santiago PA-C. OB follow-up with [facility]. . Current Inpatient Medications: Current Inpatient Medications Medications (Trade) Dose Ordered Sig/Rakel Route Start Time Stop Time Status Last Admin Dose Admin Sodium Chloride 1,000 ml @ 75 mls/hr [id number] IV 08/04/17 07:00 09/03/17 06:59 08/04/17 06:41 75 MLS/HR Miscellaneous (Iv Fluids Completed) 1 ea PRN PRN N/A 08/04/17 06:00 08/04/18 05:59 Fluoxetine HCl (Prozac Cap) 10 mg DAILY PO 08/04/17 09:00 09/03/17 08:59 08/04/17 09:54 10 MG
[2017-08-04] MEDS ORDERED: ONDA4TAB10 SL (15:14)
--- NOTE | 2017-08-04 15:24 | Discharge Instructions ---
Discharge Instructions Date of Service Aug 04, 2017. Admission Reason for Admission: tachycardia, nausea . Discharge Discharge Diagnosis / Problem: tachycardia, nausea, acid reflux Discharge Goals Goal(s): Decrease discomfort, Improve disease control Activity Recommendations Activity Limitations: resume your previous activity . Instructions / Follow-Up Instructions / Follow-Up APPOINTMENTS: OB / MORNING [facility] Please call office for appointment in a few days. PRIMARY CARE Tesha Santiago PA-C OTHER INSTRUCTIONS: May use ondansetron (Zofran) every 8 hours as needed for bad nausea. Drink plenty of fluids (frequent, small amounts). Light meals, small snacks in between. Follow guidelines for acid reflux. Seek medical attention if you have: * temperature above 101 * chest pain or trouble breathing * abdominal pain, nausea, vomiting * diarrhea, dark stools or bloody stools * vaginal bleeding or discharge * any unanswered questions or concerns Call 911 if symptoms are severe. Call if you have any questions or problems. My cell # is [phone]. You can also reach a [facility] hospitalist on duty at [facility] 24 hours a day by calling [phone]. Please take good care of yourself. Duran Parra . Current Hospital Diet Patient's current hospital diet: Regular Diet Discharge Diet Recommended Diet: Regular Diet (small portions) Procedures Procedures Performed: venous duplex lower extremities- no blood clots echocardiogram- normal Pending Studies Studies pending at discharge: yes List of pending studies: urine culture results Medical Emergencies . Who to Call and When: Medical Emergencies: If at any time you feel your situation is an emergency, please call 911 immediately. . Non-Emergent Contact Non-Emergency issues call your: Primary Care Provider, Social Work Professor, Hospital Doctor . . "Provider Documentation" section prepared by Duran Parra. . VTE Core Measure Inpt VTE Proph given/why not?: SCD's
[2017-08-04 15:34] VITALS: BP 129/60; PULSE 89; TEMP 36.8; O2SAT 99
--- NOTE | 2017-08-05 22:11 | Discharge Summary ---
Discharge Summary Date of Service Aug 05, 2017. Discharge Summary Admission Date: Aug 04, 2017 at 05:36 Discharge Date: Aug 04, 2017 Discharge Disposition: Home Principal Diagnosis: sinus tachycardia . Secondary Diagnoses/Problems: Other acute diagnoses: dehydration sinusitis intrauterine GERD . Procedures: echocardiogram venous duplex lower extremities . Consultations: Cardiology OB . Medication Reconciliation New Medications: Ondasetron Odt (Zofran Odt) 4 Mg Tab 4 MG SL Q8 PRN for Nausea, #12 TAB Continued Medications: Amoxicillin (Amoxil) 875 Mg Tab 875 MG PO BID, TAB BEGIN 08/01/17 X 10 DAYS Ascorbic Acid (Ascorbic Acid) 250 Mg Tab 250 MG PO DAILY Cholecalciferol (Vitamin D3) 2,000 Unit Cap 2000 UNITS PO DAILY Ferrous Sulfate (Iron) 325 Mg Tab 325 MG PO DAILY Fluoxetine (Prozac) 10 Mg Cap 10 MG PO DAILY, CAP Multivit/Min/Iron/Fol Ac/Pren ( Vitamin) Tab 1 TAB PO DAILY, TAB Pantoprazole (Protonix) 40 Mg Tab 40 MG PO DAILY, TAB Ranitidine (Zantac) 150 Mg Tab 150 MG PO BID, TAB Admission Information HPI (per Admitting provider): This is 26 year old F who is 34 weeks who has been having nausea and awoke from her sleep feeling sensations of her heart pounding. Patient presented to the emergency department and found to be tachycardic. Tachycardia persisted despite receiving IV fluids. In the ED, patient had 2 negative troponins however the troponins increased from 0.023 to 0.039. Patient was also evaluated by OBGYN in the ED for heart monitoring. ED physician also called Cardiology for further evaluation of tachycardia. Patient also reported increased lower extremity swelling. Ultrasound of lower extremities did not show evidence of DVT. . Physical Exam (per Admitting): General Appearance: no apparent distress Head: normocephalic, atraumatic Eyes: normal inspection, EOMI, sclerae normal ENT: normal ENT inspection, hearing grossly normal, pharynx normal Neck: supple, no adenopathy, no JVD, trachea midline Respiratory/Chest: chest non-tender, lungs clear, normal breath sounds, no respiratory distress, no accessory muscle use Cardiovascular: no JVD, normal peripheral pulses, + tachycardia Abdomen/GI: normal bowel sounds, non tender, soft, no organomegaly, no pulsatile mass Back: normal inspection, no muscle spasm, normal range of motion Extremities/Musculoskelatal: normal inspection, no calf tenderness, normal range of motion, non-tender, + pertinent finding (biltaeral lower extremity edema) Neurologic/Psych: no motor/sensory deficits, alert, normal mood/affect, oriented x 3 Skin: normal color, warm/dry, no rash Hospital Course TACHYCARDIA Presented to ED with sinus tachycardia. Serum troponin normal. Afebrile. Echo- normal. Low suspicion for pulmonary embolism. Venous duplex lower extremities negative. UA showed 4+ ketones, small amount leukocyte esterase, 10-30 WBC's, no bacteria , many epithelial cells. No fever or urinary symptoms. TSH normal. Tachycardia improved with IV fluids. Suspect that tachycardia secondary to volume depletion due to GI symptoms and / or recent URI symptoms. NAUSEA / GERD Known GERD secondary to . Continue ranitidine and PPI. Ondansetron ODT PRN. 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 SINUSITIS Diagnosed prior to admission. Symptoms improving. Afebrile. Continue amoxicillin. IUP OB consulted and followed during hospital stay. monitoring unremarkable. VTE PROPHYLAXIS SCD's. DISPOSITION Discharged to home. Primary Care follow-up with Tesha Santiago PA-C. OB follow-up with [facility]. . Discharge Instructions Date of Service Aug 04, 2017. Admission Reason for Admission: tachycardia, nausea . Discharge Discharge Diagnosis / Problem: tachycardia, nausea, acid reflux Discharge Goals Goal(s): Decrease discomfort, Improve disease control Activity Recommendations Activity Limitations: resume your previous activity . 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 PRIMARY CARE Tesha Santiago PA-C OTHER INSTRUCTIONS: May use ondansetron (Zofran) every 8 hours as needed for bad nausea. Drink plenty of fluids (frequent, small amounts). Light meals, small snacks in between. Follow guidelines for acid reflux. Seek medical attention if you have: * temperature above 101 * chest pain or trouble breathing * abdominal pain, nausea, vomiting * diarrhea, dark stools or bloody stools * vaginal bleeding or discharge * any unanswered questions or concerns Call 911 if symptoms are severe. Call if you have any questions or problems. My cell # is [phone]. You can also reach a [facility] hospitalist on duty at [facility] 24 hours a day by calling [phone]. Please take good care of yourself. Duran Parra . Current Hospital Diet Patient's current hospital diet: Regular Diet Discharge Diet Recommended Diet: Regular Diet (small portions) Procedures Procedures Performed: venous duplex lower extremities- no blood clots echocardiogram- normal Pending Studies Studies pending at discharge: yes List of pending studies: urine culture results Medical Emergencies . Who to Call and When: Medical Emergencies: If at any time you feel your situation is an emergency, please call 911 immediately. . Non-Emergent Contact Non-Emergency issues call your: Primary Care Provider, Vault Service Mechanic, Hospital Doctor . . "Provider Documentation" section prepared by Duran Parra. . VTE Core Measure Inpt VTE Proph given/why not?: SCD's
== END 2017-08-04 16:28 | disposition home or self-care (01) ==
LOC: C.EDB 01:54 → C.2T 05:36 → ENRESERV 05:47
PROVIDERS: ADMIT Hospitalist; ATTEND Hospitalist
DX: R00.0 Tachycardia, unspecified (principal); E86.0 Dehydration; K21.9 Gastro-esophageal reflux disease without esophagitis; E03.9 Hypothyroidism, unspecified; Z79.899 Other long term (current) drug therapy; Z3A.34 34 weeks gestation of pregnancy

== ENCOUNTER → 2017-08-18 | Outpatient (CLI) | payer OTHER ==
[~2017-08-18] MED LIST: AMOX875T3 PO; ASCO250T5 PO; CHOL2000 PO; FERR1TAB23 PO; FLUO10CA48 PO; ONDA4TAB10 SL; PANT40TA PO; PRENTAB26 PO; ZNTT/150 PO
== END | disposition home or self-care (01) ==
LOC: C.LABSPEC 17:34
PROVIDERS: ATTEND Obstetrics & Gynecology
DX: Z34.03 Encounter for supervision of normal first pregnancy, third trimester (principal)

== ENCOUNTER → 2017-09-01 | Outpatient (CLI) | payer OTHER ==
[~2017-09-01] MED LIST changes: +LEVO75TA5 PO; +RANI150T85 PO; -ZNTT/150 PO
[2017-09-01 15:32] LABS: HEMATOCRIT 37.8 % (37-47); HEMOGLOBIN 12.9 g/dL (12.0-16.0); MEAN CELL VOLUME 97.4 fL (80-100); MEAN CORPUSCULAR HEMOGLOBIN 33.2 pg (25-34); MEAN CORPUSCULAR HGB CONC 34.1 g/dl (32-36); PLATELET COUNT 172 K/uL (130-400); RED CELL DISTRIBUTION WIDTH CV 15.5 % (11.5-14.5); RED CELL DISTRIBUTION WIDTH SD 54.8 fL (36.4-46.3); WHITE BLOOD COUNT 9.24 K/uL (4.8-10.8)
[2017-09-01 15:53] LABS: ALBUMIN 2.5 gm/dl (3.4-5.0); ALT/SGPT 18 U/L (12-78); BLOOD UREA NITROGEN 4 mg/dl (7-18); CALCIUM 8.5 mg/dl (8.5-10.1); CARBON DIOXIDE 21 mmol/L (21-32); CREATININE 0.48 mg/dl (0.60-1.20); GLUCOSE 84 mg/dl (70-99); POTASSIUM 3.4 mmol/L (3.5-5.1); SODIUM 138 mmol/L (136-145)
[2017-09-01 15:56] LABS: ALKALINE PHOSPHATASE 128 U/L (45-117); AST/SGOT 18 U/L (15-37)
== END | disposition home or self-care (01) ==
LOC: C.LAB1850 13:50
PROVIDERS: ATTEND Obstetrics & Gynecology
DX: O12.13 Gestational proteinuria, third trimester (principal)

== ENCOUNTER 2017-09-03 02:51 | Inpatient (IN) | payer OTHER ==
[~2017-09-03] VITALS: Ht 160 cm; Wt 90.3 kg
[~2017-09-03 02:51] MED LIST changes: -LEVO75TA5 PO
[2017-09-03 03:26] VITALS: Ht 160 cm; Wt 90.3 kg
[2017-09-03] MEDS ORDERED: LEVO75TA5 PO (03:26)
[2017-09-03] MEDS ORDERED: LACTATED RINGER'S 1000ML 1,000 ML IV SCH (03:41)
[2017-09-03] MEDS ORDERED: LACTATED RINGER'S 1000ML 1,000 ML IV PRN (03:41)
[2017-09-03 04:05] LABS: HEMATOCRIT 37.4 % (37-47); HEMOGLOBIN 12.6 g/dL (12.0-16.0); MEAN CELL VOLUME 96.6 fL (80-100); MEAN CORPUSCULAR HEMOGLOBIN 32.6 pg (25-34); MEAN CORPUSCULAR HGB CONC 33.7 g/dl (32-36); MEAN PLATELET VOLUME 10.5 fL (7.4-10.4); PLATELET COUNT 165 K/uL (130-400); RED CELL DISTRIBUTION WIDTH CV 15.2 % (11.5-14.5); WHITE BLOOD COUNT 10.68 K/uL (4.8-10.8)
[2017-09-03] MEDS ORDERED: BUTORPHANOL TARTRATE 1 MG/ML VIAL IV STA (04:44)
[2017-09-03] MEDS ORDERED: NURSING VERBAL MED ORDER ONE (04:45)
[2017-09-03] MEDS ORDERED: FENTANYL CITRATE INJ 50 MCG/1 ML 2 ML VIAL ONE (06:26)
[2017-09-03] MEDS ORDERED: EpHEDrine SULFATE INJ 50 MG/ML AMP ONE (06:26)
[2017-09-03] MEDS ORDERED: BUPIVACAINE 0.25% 30 ML VIAL ONE (06:26)
[2017-09-03] MEDS ORDERED: FENTANYL 2MCG/ML ROPIV 1.25MG/ML 100ML BAG EPI ONE (06:27)
[2017-09-03] MEDS ORDERED: LACTATED RINGER'S 1000ML 500 ML IV PRN (07:06)
[2017-09-03] MEDS ORDERED: NALOXONE HCL INJ 1 MG in SODIUM CHLORIDE 0.9% 1000ML 1,000 ML IV PRN (07:06)
[2017-09-03] MEDS ORDERED: ONDANSETRON INJ 2 MG/ML 2 ML VIAL IV PRN (07:15)
[2017-09-03] MEDS ORDERED: NALBUPHINE HCL INJ 10 MG/ML AMP IV PRN (07:15)
[2017-09-03] MEDS ORDERED: DiphenhydrAMINE HCL 50 MG/ML VIAL IV PRN (07:15)
[2017-09-03] MEDS ORDERED: NALOXONE HCL INJ 0.4 MG/1 ML VIAL/CARP IV PRN (07:15)
[2017-09-03] MEDS ORDERED: EpHEDrine SULFATE INJ 50 MG/ML AMP IV PRN (07:15)
[2017-09-03] MEDS ORDERED: FENTANYL 2MCG/ML ROPIV 1.25MG/ML 100ML BAG EPI PRN (07:15)
[2017-09-03] MEDS ORDERED: OXYTOCIN 30 UNITS/500ML NSS IV ONE (09:29)
[2017-09-03] MEDS ORDERED: OXYTOCIN 30 UNITS/500ML NSS IV PRN (10:15)
[2017-09-03] MEDS ORDERED: HYDROCORTISONE ACETATE 25 MG SUPP PR PRN (10:15)
[2017-09-03] MEDS ORDERED: DIPHTHERIA/TETANUS/PERTUSSIS 0.5 ML SYR/VIAL IM. ONE (10:15)
[2017-09-03] MEDS ORDERED: ACETAMINOPHEN/CODEINE 300/30MG TAB PO PRN ×2 (10:15)
[2017-09-03] MEDS ORDERED: BENZOCAINE 20% AER SPR 82.5 GM CAN EXT PRN (10:15)
[2017-09-03] MEDS ORDERED: ACETAMINOPHEN 325 MG TAB PO PRN (10:15)
[2017-09-03] MEDS ORDERED: SUPERCREAM 0.870 % 15GM JAR EXT PRN (10:15)
[2017-09-03] MEDS ORDERED: LANOLIN OINT EXT PRN (10:15)
--- NOTE | 2017-09-03 10:45 | Anesthesia Procedure Note ---
Anesthesia Epidural Removal Nt Date & Time Sep 03, 2017 at 10:45 Vital Signs Pain Intensity: 0.0 Notes Mental Status: alert / awake / arousable, participated in evaluation Nausea / Vomiting: adequately controlled Pain: adequately controlled Airway Patency, RR, SpO2: stable & adequate BP & HR: stable & adequate Hydration State: stable & adequate Neuraxial Anesthesia: was administered, sensory block is resolving Anesthetic Complications: no major complications apparent, pt satisfied with anesthetic care Epidural: removed without complications, with tip intact
[2017-09-03] MEDS: LEVOTHYROXINE 75 MCG TAB PO SCH (12:16)
[2017-09-03] MEDS: FLUOXETINE HCL 10 MG CAP PO SCH (12:17)
[2017-09-03] MEDS: PANTOprazole SOD 40 MG TAB PO SCH (12:17)
--- NOTE | 2017-09-03 13:28 | DELIVERY SUMMARY ---
DATE OF OPERATION: 09/03/2017 FINDINGS: Viable female with Apgars of 8 and 9, baby delivered spontaneously over midline episiotomy, nuchal cord x2 reduced on the perineum, cord gases and cord blood samples obtained. Placenta delivered spontaneously. Episiotomy repaired in a routine fashion. ESTIMATED BLOOD LOSS: 300 mL. LABOR NOTE: The patient is a 26-year-old 1, para 0, with an EDC of 12 September, who presented to labor and delivery at 30+ weeks gestational age and active labor. The patient states her contractions began in approximately 0100 hours on day of delivery. She had spontaneous rupture of membranes for clear fluid. The patient had had a benign course. Blood type O positive, antibody negative, rubella immune. Hepatitis B negative. She had a normal 1-hour Glucola x2 and a negative third trimester based on culture. Upon admission, the patient was in active labor at 5 to 6 cm. Anesthesia was consulted and epidural was placed. Following placement of the epidural, the patient progressed to full dilatation. At this point, the patient had no sensation and her epidural rate was decreased to allow some sensation to return. She began her second stage and pushed for approximately 20 minutes delivering the viable female infant. Nuchal cord x2 reduced on the perineum. Cord gases and cord blood samples obtained. Placenta delivered spontaneously. Midline episiotomy repair with 4-0 and 2-0 Vicryl on a routine fashion. Estimated blood loss 300 mL. Sponge and needle count was correct. I attest to the content of the Intraoperative Record and any orders documented therein. Any exception s are noted below.
[2017-09-03 15:15] VITALS: BP 131/63; PULSE 93; TEMP 36.7
[2017-09-03] MEDS: IBUPROFEN 600 MG TAB PO PRN (16:41)
[2017-09-03 19:30] VITALS: BP 96/58; PULSE 87; TEMP 36.8
[2017-09-03] MEDS: DOCUSATE SODIUM 100 MG CAP PO SCH (19:36)
[2017-09-03] MEDS: RANITIDINE HCL 150 MG TAB PO SCH (19:37)
[2017-09-03 23:25] VITALS: BP 94/56; PULSE 105; TEMP 36.7
[2017-09-04 03:05] VITALS: BP 102/65; PULSE 89; TEMP 36.5
[2017-09-04 06:29] LABS: HEMATOCRIT 28.3 % (37-47); HEMOGLOBIN 9.4 g/dL (12.0-16.0)
[2017-09-04] MEDS: LEVOTHYROXINE 75 MCG TAB PO SCH (07:15)
[2017-09-04 07:27] VITALS: BP 107/68; PULSE 90; TEMP 36.9
--- NOTE | 2017-09-04 07:39 | Progress Note ---
Subjective Sep 04, 2017. Subjective conversation w/ patient, physical exam Ambulation: ambulating normally Voiding: no voiding problems Diet Tolerance: Regular Diet Feeding Type: Breast Feeding Objective Vital Signs Date Time Temp Pulse Resp B/P (MAP) Pulse Ox O2 Delivery O2 Flow Rate FiO2 09/04/17 07:27 36.9 90 20 107/68 (81) Room Air 09/04/17 03:05 36.5 89 18 102/65 (77) Room Air 09/03/17 23:25 Room Air 09/03/17 23:25 36.7 105 18 94/56 (69) Room Air 09/03/17 19:30 36.8 87 18 96/58 (71) Room Air 09/03/17 15:15 Room Air 09/03/17 15:15 36.7 93 18 131/63 (85) Room Air Physical Exam General Appearance: WELL-APPEARING, NO APPARENT DISTRESS Fundus: Firm, Non-Tender Extremities: no calf tenderness Laboratory Results Last 24 Hours Test 09/04/17 05:56 Hemoglobin 9.4 g/dL Hematocrit 28.3 % Assessment and Plan Problem List Medical Problems: (1) Dehydration Status: Acute (2) Tachycardia Status: Acute Post- Day#: 1 Continue Routine Care: - routine care - doing well
[2017-09-04] MEDS: PRENATAL VITAMIN TAB PO SCH (08:28)
[2017-09-04] MEDS: DOCUSATE SODIUM 100 MG CAP PO SCH ×2 (08:28→19:39)
[2017-09-04] MEDS: FLUOXETINE HCL 10 MG CAP PO SCH (08:28)
[2017-09-04] MEDS: FERROUS SULFATE 325 MG TAB PO SCH (08:28)
[2017-09-04] MEDS: PANTOprazole SOD 40 MG TAB PO SCH (08:28)
[2017-09-04] MEDS: RANITIDINE HCL 150 MG TAB PO SCH ×2 (10:13→19:39)
[2017-09-04] MEDS: IBUPROFEN 600 MG TAB PO PRN ×3 (10:14→19:39)
[2017-09-04 15:10] VITALS: BP 99/62; PULSE 83; TEMP 36.6
--- NOTE | 2017-09-04 17:16 | Discharge Instructions ---
Discharge Instructions Date of Service Sep 04, 2017. Admission Reason for Admission: LABOR Discharge Discharge Diagnosis / Problem: Vaginal Delivery Discharge Goals Goal(s): Routine recovery after delivery Medications Continue Dispensed Medications: supercream, dermaplast, tucks, lansinoh Activity Recommendations Activity Limitations: per Instructions/Follow-up section . Instructions / Follow-Up Instructions / Follow-Up ACTIVITY RECOMMENDATIONS: * Gradual return to full activity over the next 2-3 weeks. * No lifting - nothing heavier than baby over the next 2-3 weeks. * Do not engage in vigorous exercise, sexual activity or sports until cleared by your physician. * Do not drive or operate any motorized equipment until cleared by your physician. * You may shower/bathe daily. MEDICATIONS: For discomfort or pain, you may use Acetaminophen (Tylenol), Ibuprofen (Advil), or Naproxen (Aleve) following the package directions. For constipation you may use Colace following the package directions. BREAST CARE: If you are not breast feeding: * Wear a supportive bra 24 hours a day for one to two weeks. * Avoid stimulating your breasts and nipples as much as possible during the first few weeks after delivery. * When taking a shower, have the warm water hit your back, not breasts. * When your breasts feel full, apply ice packs. Usually three to four times a day helps ease the discomfort. * Take a mild pain medication (Tylenol / Motrin) when you are uncomfortable. If breast feeding: * Use breast milk to lubricate nipples. Lansinoh cream may be used for sore nipples. You do not need to remove cream prior to breast feeding. If using a different brand of cream, check the label for directions regarding removal of cream prior to nursing. * Wear a supportive bra. * If having problems with breasts or breast feeding, call a pre owned sales consultant or your health care provider. EPISIOTOMY CARE: After delivery, if you have an episiotomy (stitches), the following steps will ease discomfort and aid healing. * For the first 24 hours after delivery, place ice packs next to your episiotomy to help reduce swelling. * After the first 24 hour-period, sitz baths, either portable or in the tub, are suggested. A shower with a shower arm sprayed over the episiotomy may be comforting. * Kerry care should be done after each voiding and bowel movement. Squirt warm water from a plastic bottle over the perineum (region of the body between the anus and urinary opening) and pat dry. * Use Dermoplast to ease discomfort. Shake container. [place] directly over the episiotomy. Place a Tucks on a clean sanitary pad next to your episiotomy. SPECIAL CARE INSTRUCTIONS: When you are discharged from the hospital, it is important for you to follow the instructions listed below: * During the first week at home, you should be able to care for yourself and your baby. In addition, the usual light household activities are encouraged. * Limit your activities to the way you feel. Do not try to clean the house or move furniture. Be sensible. * If you actively engage in sports and have done so up until the time of your delivery, you may resume these activities as soon as you feel able. This may take up to one month or even longer. Use good judgment. * Continue to take your vitamins for at least six weeks after the of your baby. * Your diet need not be limited unless you were on a special diet before your delivery. Breast-feeding mothers need around 2500 calories per day and at least 64-80 ounces of fluid per day (8 to 10 glasses). * You should eat foods from the four major food groups. Crash diets or fad diets are to be avoided. Eating lean meats, fresh fruits and vegetables, low-fat dairy products, high fiber foods and a regular exercise program, will help you get back to your pre- weight without putting your health at risk. * Constipation is sometimes a problem after delivery. Take a mild laxative as needed. If breast feeding, Milk of Magnesia is acceptable to use. You may use a suppository or Fleets enema if no episiotomy. * A daily shower or tub bath is suggested. Be sure to thoroughly and gently dry the perineum. * A bloody vaginal discharge will usually continue until around four weeks post . A small amount of bleeding may continue for as long as six weeks. Vaginal discharge changes from the bright red bleeding after delivery to pink then brownish and finally yellowish-pink before becoming white and disappearing. * Bleeding may increase with activity. Your first period may come in 4-8 weeks. If you are breast feeding, your period may be delayed even longer. * [place] (sex) can begin whenever both you and your partner feel comfortable and do not have any form of genital infection. It is recommended that you wait at least six weeks for internal and external healing to occur. If you have questions, please talk to your health care practitioner. A condom should be used to prevent infection and . * Foreplay, gentle intercourse and lubrication is very important the first several times to prevent pain. A water-based lubricant such as K-Y jelly or Astroglide may be used. * If you have RH negative blood and your baby is RH positive, you will receive RHOGAM by injection prior to discharge. The nurse will give you a card to keep with you that has the date and place that you received RHOGAM after delivery. * During your care, you had a Rubella screen done to check for the presence of rubella antibodies in your blood. If your test was negative, you will receive a Rubella vaccine prior to discharge. This vaccine may cause a fever, soreness at the injection site and flu-like symptoms. If these symptoms persist, notify your health care practitioner. is not advised for one month after a Rubella vaccine. * Verbalizes understanding of car seat law as reviewed with patient nursing. * Car Seat hand-out given and reviewed with patient by nursing. * Shaken baby information reviewed with patient by nursing. Call you doctor if: * Heavy bleeding (saturating several pads an hour) or passing clots the size of your fist. * A fever >101 degrees F (38.3 degrees C) on two occasions four hours apart and /or chills. * Unusual pain in the pelvic or vaginal areas. * "Baby Blues" lasting longer than two weeks. If you have any questions or concerns, call your health care practitioner at . FOLLOW UP VISIT: * Please call the office at to schedule a 6 week examination. It is important you keep this appointment. It is important for you to make arrangements for either yearly or twice yearly check-ups thereafter. Current Hospital Diet Patient's current hospital diet: Regular OB Diet Discharge Diet Recommended Diet: Regular Diet Pending Studies Studies pending at discharge: no Medical Emergencies . Who to Call and When: Medical Emergencies: If at any time you feel your situation is an emergency, please call 911 immediately. . Non-Emergent Contact Non-Emergency issues call your: Primary Care Provider . . "Provider Documentation" section prepared by Otoniel Galvez. . VTE Core Measure Inpt VTE Proph given/why not?: Treatment not indicated
[2017-09-04] MEDS ORDERED: BISACODYL 5 MG TABEC PO SCH (20:00)
[2017-09-04 23:40] VITALS: BP 104/67; PULSE 75; TEMP 36.7
--- NOTE | 2017-09-05 06:22 | Progress Note ---
Subjective Sep 05, 2017. Subjective conversation w/ patient Ambulation: ambulating normally Voiding: no voiding problems Diet Tolerance: Regular Diet Lochia: Moderate Feeding Type: Bottle Feeding Pain: 3/10 perineal pain reported, improved with analgesia Review of Systems Constitutional: No fever, No chills Respiratory: No shortness of breath Cardiac: No chest pain Breast: No breast pain Abdomen: No pain, No nausea, No vomiting Female : No dysuria Objective Vital Signs Date Time Temp Pulse Resp B/P (MAP) Pulse Ox O2 Delivery O2 Flow Rate FiO2 09/04/17 23:40 Room Air 09/04/17 23:40 36.7 75 20 104/67 (79) Room Air 09/04/17 15:10 36.6 83 18 99/62 (74) Room Air 09/04/17 15:10 Room Air 09/04/17 07:27 36.9 90 20 107/68 (81) Room Air 09/04/17 07:15 Room Air Physical Exam General Appearance: WELL-APPEARING, WD/WN, NO APPARENT DISTRESS Respiratory/Chest: lungs clear, normal breath sounds Cardiovascular: regular rate, rhythm Abdomen: soft Fundus: Firm, Tender, Relation to Umbilicus (3 below) Extremities: no calf tenderness Medications Current Inpatient Medications Medications (Trade) Dose Ordered Sig/Rakel Route Start Time Stop Time Status Last Admin Dose Admin Lactated Ringer's 1,000 ml @ 999 mls/hr Q1H1M PRN IV 09/03/17 03:41 10/03/17 03:40 09/03/17 07:01 999 MLS/HR Oxytocin (Pitocin IV) 30 units UD PRN IV 09/03/17 10:15 10/03/17 10:14 09/03/17 12:14 30 UNITS Benzocaine (Dermoplast Aero Spr) 1 appln PRN PRN EXT 09/03/17 10:15 10/03/17 10:14 09/03/17 15:07 1 APPLN Cocaine HCl (Supercream 0.870% Cr) BID PRN EXT 09/03/17 10:15 09/17/17 10:14 09/03/17 15:16 15 GM Hydrocortisone Acetate (Anusol Hc Supp) 25 mg BID PRN PA 09/03/17 10:15 10/03/17 10:14 Lanolin (Lanolin Oint) PRN PRN EXT 09/03/17 10:15 10/03/17 10:14 Prenat Multivit/ [place]/Iron/Folic Ac ( Vitamin Tab) 1 tab DAILY PO 09/04/17 08:00 10/04/17 07:59 09/04/17 08:28 1 TAB Ibuprofen (Motrin Tab) 600 mg Q4H PRN PO 09/03/17 10:15 10/03/17 10:14 09/04/17 19:39 600 MG Acetaminophen (Tylenol Tab) 650 mg Q6H PRN PO 09/03/17 10:15 10/03/17 10:14 Acetaminophen/ Codeine Phosphate (Tylenol w/ Codeine #3 Tab) 1 tab Q4H PRN PO 09/03/17 10:15 10/03/17 10:14 Acetaminophen/ Codeine Phosphate (Tylenol w/ Codeine #3 Tab) 2 tab Q4H PRN PO 09/03/17 10:15 10/03/17 10:14 Docusate Sodium (coLACE CAP) 100 mg BID PO 09/03/17 20:00 10/03/17 19:59 09/04/17 19:39 100 MG Ferrous Sulfate (Feosol Tab) 325 mg DAILY PO 09/04/17 08:00 10/04/17 07:59 09/04/17 08:28 325 MG Fluoxetine HCl (Prozac Cap) 10 mg DAILY PO 09/03/17 11:00 10/03/17 10:59 09/04/17 08:28 10 MG Levothyroxine Sodium (Synthroid Tab) 75 mcg DAILYBB PO 09/03/17 10:30 10/03/17 10:29 09/04/17 07:15 75 MCG Pantoprazole Sodium (Protonix Tab) 40 mg DAILY PO 09/03/17 10:45 10/03/17 10:44 09/04/17 08:28 40 MG Ranitidine HCl (zANTac TAB) 150 mg BID PO 09/03/17 20:00 10/03/17 19:59 09/04/17 19:39 150 MG Assessment and Plan Problem List Medical Problems: (1) Dehydration Status: Acute (2) Tachycardia Status: Acute Post- Day#: 2 Continue Routine Care: 26 year old s/p NVD w/midline episiotomy day 2 - patient doing well clinically - O+, rubella immune, GBS -ve - analgesia prn - vitals reviewed and wnl - Hgb 12.6 -> 9.4 - pt feels ready for d/c today - will go over d/c instructions Resident Physician Supervision Note: I interviewed and examined the patient. Discussed with Dr. Galvez and agree with findings and plan as documented in the note. Any exceptions or clarifications are listed here: D/C instructions reviewed Documented By: Shashank Card Resident Tracking Resident Involvement: Resident Care Provided Care Provided: OB Delivery
[2017-09-05] MEDS: LEVOTHYROXINE 75 MCG TAB PO SCH (07:19)
[2017-09-05 07:26] VITALS: BP 109/64; PULSE 80; TEMP 36.7
[2017-09-05] MEDS: RANITIDINE HCL 150 MG TAB PO SCH (08:45)
[2017-09-05] MEDS: PANTOprazole SOD 40 MG TAB PO SCH (08:45)
[2017-09-05] MEDS: DOCUSATE SODIUM 100 MG CAP PO SCH (08:47)
[2017-09-05] MEDS: FERROUS SULFATE 325 MG TAB PO SCH (08:47)
[2017-09-05] MEDS: FLUOXETINE HCL 10 MG CAP PO SCH (08:48)
[2017-09-05] MEDS: PRENATAL VITAMIN TAB PO SCH (08:48)
[2017-09-05] MEDS: IBUPROFEN 600 MG TAB PO PRN (08:49)
[2017-09-05 15:10] VITALS: BP 118/75; PULSE 70; TEMP 36.8; O2SAT 97
== END 2017-09-05 16:20 | disposition home or self-care (01) | DRG 775 ==
LOC: C.LD 02:51 → C.OPB 02:51 → C.LD 03:49 → C.OBG 15:44 → EDSTATUS 09-12 02:50
PROVIDERS: ADMIT Obstetrics & Gynecology; ATTEND Obstetrics & Gynecology
PROC: 0W8NXZZ Division of Female Perineum, External Approach (ICD-10-PCS; principal; 2017-09-03)
PROC: 10E0XZZ Delivery of Products of Conception, External Approach (ICD-10-PCS; principal; 2017-09-03)
DX: O69.81X0 Labor and delivery complicated by cord around neck, without compression, not applicable or unspecified (principal); O99.284 Endocrine, nutritional and metabolic diseases complicating childbirth; E03.9 Hypothyroidism, unspecified; O99.214 Obesity complicating childbirth; E66.9 Obesity, unspecified; O99.344 Other mental disorders complicating childbirth; F41.9 Anxiety disorder, unspecified; F32.9 Major depressive disorder, single episode, unspecified; Z79.899 Other long term (current) drug therapy; Z68.35 Body mass index [BMI] 35.0-35.9, adult; Z3A.38 38 weeks gestation of pregnancy; Z37.0 Single live birth

== ENCOUNTER 2021-05-19 06:31 | Inpatient (IN) ==
[2021-05-19] MEDS ORDERED: LACTATED RINGER'S 1,000 ML IV PRN (06:37)
[2021-05-19] MEDS ORDERED: OXYTOCIN 30 UNITS/500 ML BAG IV PRN ×2 (06:37→07:48)
[2021-05-19] MEDS ORDERED: LIDOCAINE 1% LOCAL 20 ML VIAL ONE (06:53)
--- NOTE | 2021-05-19 07:29 | Delivery Summary ---
Vaginal Delivery Summary Date of Service May 19, 2021 Vaginal Delivery Summary PREOPERATIVE DIAGNOSIS: 1. Single intrauterine at 37 5/7 2. Labor 3. 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 Hypothyroid 7. History of seizure disorder 8. MTHFR positive 9. Mild polyhydramnios POSTOPERATIVE DIAGNOSIS: 1. Single intrauterine at 37 5/7 2. Labor 3. 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 Hypothyroid 7. History of seizure disorder 8. MTHFR positive 9. Mild polyhydramnios 10. Delivered PROCEDURE: 1. Normal spontaneous vaginal delivery. SURGEON: Nesha Kaiser MD ANESTHESIA: Local ESTIMATED BLOOD LOSS: 400 mL FLUIDS: Continuous LR. URINE OUTPUT: None. COMPLICATIONS: None. CONDITION: Stable. INDICATIONS: 30 y/o at 37 5/7 wga presented in active labor. Had been monitored for r/o labor overnight w/o cervical change for approx 4 hours and discharged home. She then presented back w/ worsening contractions hours later and found to be 10cm with a bulging bag. IV was obtained and she underwent AROM and desired to push. FINDINGS: A viable female , weight pending with Apgars of 8 and 9 at 1 and 5 minutes respectively. SPECIMEN: Cord blood, placenta OPERATIVE REPORT: The patient progressed to 10 cm, 100% effaced and +2 station, pushed over intact perineum with anesthesia to deliver a viable female , weight and Apgars as above. Head of delivered in CINDY position. No nuchal cord was present. Body and shoulders were delivered without difficulty. was delivered to maternal abdomen and nursing staff. Delayed cord clamping was performed for 60 seconds. Cord was clamped and cut. Cord blood was obtained. Placenta delivered spontaneously intact with 3-vessel cord. IV access was then lost and so IM oxytocin and fundal massage were given for excellent hemostasis. Vagina, cervix, perineum, and placenta were inspected. A left sulcal and left labial laceration were noted and repaired using 3-[address]-1. There was excellent hemostasis. Sponge and needle counts correct x2. No sponges were left behind. Mother and stable in immediate period. [facility] [place] Vaginal Delivery Charge Vaginal Delivery Codes: 20515 global code for the antepartum, delivery, and post- Delivery Type Details:
[2021-05-19] MEDS ORDERED: OXYTOCIN 10 UNITS/ML VIAL ONE (07:35)
[2021-05-19] MEDS ORDERED: IBUPROFEN 600 MG TAB PO ONE (07:35)
[2021-05-19] MEDS ORDERED: ACETAMINOPHEN 325 MG TAB PO PRN (07:48)
[2021-05-19] MEDS ORDERED: BENZOCAINE 20% AER SPR 82.5 GM CAN EXT PRN (07:48)
[2021-05-19] MEDS ORDERED: DIPHTHERIA/TETANUS/PERTUSSIS 0.5 ML SYR/VIAL IM ONE (07:48)
[2021-05-19] MEDS ORDERED: HYDROCORTISONE ACETATE 25 MG SUPP PR PRN (07:48)
[2021-05-19] MEDS ORDERED: SUPERCREAM 0.870% 15 GM JAR EXT PRN (07:48)
[2021-05-19 08:03] LABS: Hematocrit (blood only) 38.8 % (37-47); Mean Corpuscular Hemoglobin 32.2 pg (25-34); Mean Corpuscular Hgb Conc 33.5 g/dL (32-36); Mean Platelet Volume 10.3 fL (7.4-10.4); Platelet Count 161 K/uL (130-400); RDW Standard Deviation 49.1 fL (36.4-46.3); Red Blood Count 4.04 M/uL (4.2-5.4); White Blood Count 16.12 K/uL (4.8-10.8)
[2021-05-19] MEDS ORDERED: ONDANSETRON 4 MG OD TAB PO PRN (08:04)
[2021-05-19] MEDS: PRENATAL VITAMIN 1 TAB PO SCH (08:35)
[2021-05-19] MEDS: DOCUSATE SODIUM 100 MG CAP PO SCH ×2 (08:35→21:46)
[2021-05-19] MEDS: levETIRAcetam 250 MG TAB PO SCH ×2 (08:36→21:48)
[2021-05-19] MEDS ORDERED: Nursing to Pharmacy Communication SCH (08:45)
--- NOTE | 2021-05-19 08:52 | History & Physical Report ---
Date of Service May 19, 2021 Assessment & Plan (1) Active labor: Plan: 30 y/o presents in labor VSS Fetus appears cat 1 when tracing in b/w pushing Labor - see delivery summary GBS neg Admission and Anticipated Discharge Date Admission Date: May 19, 2021 History of Present Illness Chief Complaint: Labor Primary Care Provider: DAVID Cintron 30 y/o at 37 5/7 wga presents in active labor. Had been monitored for r/o labor overnight w/o cervical change for approx 4 hours and discharged home. She then presented back w/ worsening contractions hours later and found to be 10cm with a bulging bag. PNI: -Hypothyroid *Check TFTs Q4wks(recurring order) -Obesity *BMI 35 or >At start of preg, growth [place] @ 32wks[place]87[place] [facility] [place] -History of seizure disorder *on Keppra -History of Brain tumor- letter dated 02/16/21 notes no definitive contraindication from their perspective for vaginal .--akh (04/16/21) -L renal agenesis vs ectopia - US to search for kidney or confrim dx of unilateral renal agenesis. 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 05/12/20 05/18/21 History cholecalciferol (vitamin D3) 125 125 mcg PO DAILY 05/12/20 05/18/21 History mcg (5,000 unit) capsule levetiracetam 750 mg tablet 750 mg PO BID 05/15/20 05/18/21 History (Keppra) ferrous sulfate 325 mg (65 mg 325 mg PO BID 10/17/20 05/18/21 History iron) tablet fluoxetine 20 mg capsule (Prozac) 20 mg PO DAILY 10/17/20 05/18/21 History folic acid 1 tab PO DAILY 10/17/20 05/18/21 History levothyroxine 75 mcg capsule 75 mcg PO DAILY 10/17/20 05/18/21 History multivitamin 1 tab PO DAILY 11/17/20 05/18/21 History ondansetron HCl 4 mg tablet 4 mg PO Q6H PRN #20 tab 01/09/21 05/18/21 Rx (Zofran) Patient History Medical History Anxiety Ganglioglioma of brain History of chicken pox Hypothyroidism Oral contraceptive prescribed Seizure disorder from brain tumor Surgical History H/O brain surgery History of oral surgery Tooth extraction Family History Grandmother (Paternal) Hypertension Breast cancer and 5 of her sisters Grandfather (Paternal) Hypertension Denies family history of Ovarian cancer Colorectal cancer Social History Smoking Status: Never smoker Second Hand Exposure: No; Do You Dip or Chew Tobacco: No; Tobacco Cessation Education Requested by Patient: No Hx Alcohol Use: No Hx Substance Use: No Preferred Language: Berm[place]ian Communication Ability: Effective Electrician Yard Required: No Beliefs That Will Affect Care: None marital status: marital status details: Greg Coronado (29) [phone] Current Living Situation: Family Current Living Situation Comment: lives with spouse and daughter, no pets. 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 Other Information That Helps Us Care for You: No Feels Safe at Home: Yes Assistive Devices: None Physical Exam Genitourinary: Manual OB Exam: + cervical dilation 10 cm, + cervical effacement 100% and + station + 1 OB Exam Monitor Tracing: + external FHT monitor used, + external uterine monitor used and + category I (difficult to trace due to pushing but FHT appropriate) Results & Data ([facility]) Vital Signs (Past 12 Hours) Vital Signs Temp Pulse Resp BP 05/19/21 08:43 76 161/94 H 05/19/21 08:29 72 140/72 05/19/21 08:14 98.2 F 73 20 113/55 L 05/19/21 07:58 67 111/70 05/19/21 07:43 75 103/61 05/19/21 07:29 80 104/53 L Laboratory Results Lab Results OB Labs: Blood Type O Positive 10/23/20 Antibody Screen NEGATIVE 10/23/20 Hemoglobin 12.0 g/dL (12.0-16.0) 03/09/21 Hematocrit 36.1 % (37-47) L 03/09/21 Mean Corpuscular Volume 94.5 fL (80-100) 10/23/20 Platelet Count 256 K/uL (130-400) 10/23/20 Rubella IgG Antibody Immune (Immune) 10/23/20 Rapid Plasma Reagin Nonreactive (Nonreactive) 10/23/20 Hepatitis B Surface Antigen Neg (Neg) 10/23/20 HIV (1&2) Ab and P24 Ag, 4th Gener Neg (Neg) 10/23/20 Glucose 1 Hour 50 gm Load 107 mg/dl (70-130) 03/09/21 OB Optional Labs: Chlamydia trachomatis RNA NOT DETECTED (NOT DETECTED) 10/23/20 Neisseria gonorrhoeae RNA NOT DETECTED (NOT DETECTED) 10/23/20 Thyroid Stimulating Hormone (TSH) 1.130 uIu/ml (0.300-4.500) 10/23/20 Labs Reviewed: cf/sma declined low risk cell free dna Coding Level of Care Code None Diagnoses Active labor
[2021-05-19] MEDS ORDERED: CHOLECALCIFEROL 1,000 UNITS 25 MCG TAB PO SCH ×3 (09:00→21:00)
[2021-05-19] MEDS ORDERED: CETIRIZINE HCL 10 MG TABLET PO SCH ×2 (09:00→21:00)
[2021-05-19] MEDS ORDERED: ASCORBIC ACID 500 MG TAB PO SCH ×2 (09:00→21:00)
[2021-05-19] MEDS ORDERED: FOLIC ACID 1 MG TAB PO SCH ×2 (09:00→21:00)
[2021-05-19] MEDS ORDERED: MULTIVITAMIN TAB PO SCH (09:00)
[2021-05-19] MEDS ORDERED: FLUoxetine HCL 20 MG CAP PO SCH ×2 (09:00→21:00)
[2021-05-19] MEDS: IBUPROFEN 600 MG TAB PO PRN ×2 (18:00→21:46)
[2021-05-19] MEDS: FERROUS SULFATE 325 MG TAB PO SCH (21:46)
--- NOTE | 2021-05-20 06:06 | Obstetrical Progress Note ---
Date of Service <Edilma Hinkle DO - Last Filed: 05/20/21 07:08> May 20, 2021 Assessment & Plan <Edilma Hinkle DO - Last Filed: 05/20/21 07:08> (1) MTHFR gene mutation: (2) Seizure disorder: (3) Hypothyroidism: (4) Hypothyroid in , antepartum: (5) Polyhydramnios affecting : (6) Anxiety: (7) care and examination: 30 yo day1 from w/hypothyroidism, anxiety, seizure, doing well. On keppra (on hold), prozec, synthroid. Pregnancycomplicated by positive MTHFR, mild polyhydramnios, L renal agenesis, megacisteramagma -Continue routine post care. -vital signs reviewed and WNL (Tmax 36.9) -Blood Type O+, GBS-, Rubella immune -Encourage ambulation, monitor and control pain with Motrin, tylenol PRN, resume regular diet, monitor lochia -encourage bottle feeding with pump -hemoglobin 13 Day #:: 1 <Cande Jeffers MD - Last Filed: 05/20/21 07:17> (1) MTHFR gene mutation: (2) Seizure disorder: (3) Hypothyroidism: (4) Hypothyroid in , antepartum: (5) Polyhydramnios affecting : (6) Anxiety: (7) care and examination: Subjective <Edilmaruss Hinkle DO - Last Filed: 05/20/21 07:08> Ambulation: ambulating normally Voiding: no voiding problems Passing Gas:: Yes Diet Tolerance:: regular diet Lochia:: Small Feeding Type:: bottle feeding (with pump) Current Pain Level(1-10): 2 Review of Systems Denies fever, chills, sweats Denies shortness of breath, difficulty breathing, chest pain, palpitations, chest pressure. Denies breast pain. Denies dysuria. Denies headache or changes in vision. Physical Exam <Edilma Hinkle DO - Last Filed: 05/20/21 07:08> General: Alert, oriented. No acute distress. Cardiac: Regular rate and rhythm, no murmurs/rubs/gallops. Respiratory: Clear to auscultation bilaterally a/p, no wheezes/rales/rhonchi. No increased work of breathing. Symmetrical chest rise. No respiratory distress. Abdomen: Soft, nontender, nondistended. Bowel sounds present. Uterus: Uterine fundus firm, palpable level of to the left umbilicus. Lower Extremities: No lower extremity edema or swelling. No deep calf pain. Nirali's negative bilaterally.. Results & Data ([facility]) <Edilma Hinkle DO - Last Filed: 05/20/21 07:08> Vital Signs (Past 12 Hours) Vital Signs Temp Pulse Resp BP Pulse Ox 05/20/21 04:00 36.9 C 84 16 100/65 97 05/19/21 23:00 37.0 C 73 16 105/70 05/19/21 20:00 36.9 C 73 16 103/62 96 <Cande Jeffers MD - Last Filed: 05/20/21 07:17> Medications Administered Ascorbic Acid (Ascorbic Acid 500 Mg Tab) 500 mg PO HS [facility] Stop: 06/18/21 20:59 Last Admin: 05/19/21 21:48 Dose: 500 mg Documented by: [id number] Benzocaine (Benzocaine 20% Aer Spr 82.5 Gm Can) 1 appln EXT PRN PRN PRN Reason: Perineal Discomfort Stop: 06/18/21 07:47 Last Admin: 05/19/21 10:04 Dose: 82.5 appln Documented by: [id number] Cetirizine HCl (Cetirizine Hcl 10 Mg Tablet) 10 mg PO HS [facility] Stop: 06/18/21 20:59 Last Admin: 05/19/21 21:48 Dose: 10 mg Documented by: [id number] Cocaine HCl (Supercream 0.870% 15 Gm Jar) 1 gm EXT BID PRN PRN Reason: Hemorrhoidal Inflammation Stop: 06/02/21 07:47 Last Admin: 05/19/21 10:04 Dose: 1 gm Documented by: [id number] Docusate Sodium (Docusate Sodium 100 Mg Cap) 100 mg PO DAILY@ [facility] Stop: 06/18/21 07:59 Last Admin: 05/19/21 21:46 Dose: 100 mg Documented by: [id number] Admin: 05/19/21 08:35 Dose: 100 mg Documented by: [id number] Ferrous Sulfate (Ferrous Sulfate 325 Mg Tab) 325 mg PO BID [facility] Stop: 06/18/21 08:59 Last Admin: 05/19/21 21:46 Dose: 325 mg Documented by: [id number] Fluoxetine HCl (Fluoxetine Hcl 20 Mg Cap) 20 mg PO HS [facility] Stop: 06/18/21 20:59 Last Admin: 05/19/21 21:49 Dose: 20 mg Documented by: [id number] Folic Acid (Folic Acid 1 Mg Tab) 1 mg PO HS [facility] Stop: 06/18/21 20:59 Last Admin: 05/19/21 21:47 Dose: 1 mg Documented by: [id number] Ibuprofen (Ibuprofen 600 Mg Tab) 600 mg PO Q4H PRN PRN Reason: Pain/OWEN/Cramping/Fever Stop: 06/18/21 07:47 Last Admin: 05/19/21 21:46 Dose: 600 mg Documented by: [id number] Admin: 05/19/21 18:00 Dose: 600 mg Documented by: [id number] Levetiracetam (Levetiracetam 250 Mg Tab) 750 mg PO BID [facility] Stop: 06/18/21 08:59 Last Admin: 05/19/21 21:48 Dose: 750 mg Documented by: [id number] Admin: 05/19/21 08:36 Dose: 750 mg Documented by: [id number] Prenat Multivit/[employer]/Iron/Folic Ac ( Vitamin 1 Tab) 1 tab PO DAILY@08 [facility] Stop: 06/18/21 07:59 Last Admin: 05/19/21 08:35 Dose: 1 tab Documented by: [id number] Vitamin D (Cholecalciferol 1,000 Units 25 Mcg Tab) 2,000 units PO [facility] Stop: 06/18/21 20:59 Last Admin: 05/19/21 21:48 Dose: 2,000 units Documented by: [id number] <Cande Jeffers MD - Last Filed: 05/20/21 07:17> Co-Signing Physician Notes Resident Physician Supervision Note: I interviewed and examined the patient. Discussed with Dr. Hinkle and agree with findings and plan as documented in the note. Any exceptions or clarifications are listed here: Keppra was never actually held. Dose given yesterday as I feel it should be, and will be continued today, to avoid maternal withdrawal and lowered seizure threshold in the vulnerable period. workup continues and mom is awaiting recommendations from neonatology consultants. Will prep discharge as she would be glad to go home if that is determined to be appropriate from a peds standpoint, but anticipate that due to care needs they'll be staying until tomorrow AM. Mom is recovering well with the exception of soreness on her bottom from a large labial laceration with expected edema. She was not previously ordered any narcotic pain medication which was rectified this morning and should be of significant help. Documented By: Cande Jeffers MD, FACOG Resident Activity Tracking <Edilma Hinkle, - Last Filed: 05/20/21 07:08> Resident Involvement: Resident Care Provided Care Provided: OB Delivery
[2021-05-20 06:15] LABS: Hematocrit (blood only) 32.9 % (37-47); Hemoglobin 10.9 g/dL (12.0-16.0); Mean Corpuscular Hemoglobin 32.1 pg (25-34); Mean Corpuscular Hgb Conc 33.1 g/dL (32-36); Mean Corpuscular Volume 96.8 fL (80-100); Mean Platelet Volume 10.4 fL (7.4-10.4); Platelet Count 160 K/uL (130-400); RDW Coefficient of Variation 14.4 % (11.5-14.5); RDW Standard Deviation 50.5 fL (36.4-46.3); White Blood Count 13.92 K/uL (4.8-10.8)
[2021-05-20] MEDS ORDERED: LEVOTHYROXINE SODIUM 75 MCG TABLET PO SCH (06:30)
[2021-05-20] MEDS ORDERED: oxyCODONE/ACETAMINOPHEN 5mg/325mg TAB PO PRN (07:06)
[2021-05-20] MEDS: FERROUS SULFATE 325 MG TAB PO SCH (08:29)
[2021-05-20] MEDS: PRENATAL VITAMIN 1 TAB PO SCH (08:29)
[2021-05-20] MEDS: DOCUSATE SODIUM 100 MG CAP PO SCH (08:29)
[2021-05-20] MEDS: levETIRAcetam 250 MG TAB PO SCH (08:29)
[2021-05-20] MEDS: IBUPROFEN 600 MG TAB PO PRN (08:30)
--- NOTE | 2021-05-20 11:26 | Obstetrical Progress Note ---
Date of Service May 20, 2021 Assessment & Plan (1) care and examination: Patient has been more active and sitting and upright. There is no evidence of hematoma on exam but the area is swollen and bruised. Recommend pain management and ice for the area. Subjective ctsp by nursing because of concern for possible developing hematoma. Patient had a rapid , nonmedicated vaginal delivery. Per note had left labial and sulcal laceration that appears to not have been difficult to repair. Patient is noting more discomfort in the area and nursing notes it is more swollen than previously. Physical Exam evaluation of the perineum and labia reveals swelling and bruising of the left labia majora. incision intact. no palpable hematoma in the labia or with a one finger evaluation of the left side wall of the vagina. Results & Data ([facility]) Vital Signs (Past 12 Hours) Vital Signs Temp Pulse Resp BP Pulse Ox 05/20/21 11:00 36.8 C 82 18 101/61 96 05/20/21 08:15 36.9 C 79 16 101/68 97 05/20/21 04:00 36.9 C 84 16 100/65 97
[2021-05-20] MEDS ORDERED: bisacodyL 5 MG TABEC PO SCH (20:00)
[2021-05-21] MEDS ORDERED: bisacodyL 10 MG SUPP PR PRN
== END 2021-05-20 15:50 | disposition home or self-care (01) | DRG 806 ==
LOC: OPB 06:31 → 4S1 06:36 → 4S2 09:57